=== PATIENT | male | born 1945 | race Caucasian/White ===

== ENCOUNTER 2017-08-01 17:17 | Emergency (ER) | payer MEDICARE, MEDICAID ==
[2017-08-01 17:18] VITALS: BMI 26.4
--- NOTE | 2017-08-01 17:33 | ED PDOC ---
Arrival/HPI - General Time Seen by Provider: 08/01/17 17:21 Historian: Patient, Family - History of Present Illness Narrative History of Present Illness (Text): 08/01/17 17:33 This 72 yo male with pmh DM, HTN, CAD, presents to this ED by BLS for evaluation of syncope. Patient stated he was doing well. While walking to bathroom he loss recollection of how he fainted. stated she heard patient falling on the floor. She found patient on the floor at the bathroom door. Denies other complains. stated patient take his insulin in the morning with a "little cereal", however patient did not eat his lunch. Time/Duration: Prior to Arrival Context: Home Past Medical History - Provider Review Nursing Documentation Reviewed: Yes - Cardiac Hx Pacemaker: No - Pulmonary Hx Respiratory Disorders: No - Neurological Hx Paralysis: No - HEENT Hx HEENT Disorder: Yes Hx Cataracts: Yes (Right Eye) - Renal Hx Renal Disorder: No - Endocrine/Metabolic Hx Endocrine Disorders: Yes Hx Diabetes Mellitus Type 2: Yes - Hematological/Oncological Hx Blood Transfusions: No - Integumentary Hx Dermatological Disorder: No - Musculoskeletal/Rheumatological Hx Musculoskeletal Disorders: No - Gastrointestinal Hx Gastrointestinal Disorders: No - Genitourinary/Gynecological Hx Genitourinary Disorders: Yes Hx Prostate Problems: Yes - Psychiatric Hx Emotional Abuse: No Hx Physical Abuse: No Hx Substance Use: No - Surgical History Hx Cardiac Catheterization: Yes Hx Cholecystectomy: Yes Hx Coronary Stent: Yes (5 placed about 3 years ago) - Anesthesia Hx Anesthesia Reactions: No Hx Malignant Hyperthermia: No - Suicidal Assessment Feels Threatened In Home Enviroment: No Family/Social History - Physician Review Nursing Documentation Reviewed: Yes Family/Social History: Other (noncontributory) Smoking Status: Former Smoker Hx Alcohol Use: No Hx Substance Use: No Allergies/Home Meds Allergies/Adverse Reactions: Allergies No Known Allergies Allergy (Verified 08/28/15 18:25) Home Medications: Home Meds Medication Instructions Recorded Confirmed Insulin Glargine,Hum.rec.anlog 30 unit SC QAM 08/29/15 08/01/17 [Lantus] Insulin Human Regular [Novolin R] 20 unit SC BID 08/29/15 08/01/17 MetFORMIN [glucoPHAGE] 1,000 mg PO BID 12/23/15 11/25/17 Simvastatin 10 mg PO DAILY 08/29/15 08/01/17 Tamsulosin [Flomax] 0.4 mg PO DAILY 08/29/15 08/01/17 Metoprolol Tartrate [Lopressor] 12.5 mg PO BID 10/09/15 08/01/17 Review of Systems - Review of Systems Constitutional: Normal. absent: Fatigue, Weight Change, Fevers Eyes: Normal ENT: Normal. absent: Sore Throat, Rhinorrhea Respiratory: Normal. absent: SOB, Cough Cardiovascular: Syncope. absent: Chest Pain, Palpitations, Edema, Calf Pain, LIGHT, Orthopnea Gastrointestinal: Normal. absent: Abdominal Pain, Nausea, Vomiting Genitourinary Male: Normal. absent: Dysuria Musculoskeletal: Normal Skin: Normal. absent: Rash Neurological: Normal. absent: Headache, Dizziness Endocrine: Normal. absent: Diaphoresis Hemo/Lymphatic: Normal Psychiatric: Normal Physical Exam Vital Signs Temp Pulse Resp BP Pulse Ox 08/01/17 21:56 67 20 154/73 H 97 08/01/17 19:07 68 16 147/75 99 08/01/17 17:31 98.4 F 68 18 130/64 96 Temperature: Afebrile Blood Pressure: Normal Pulse: Regular Respiratory Rate: Normal Appearance: Positive for: Well-Appearing, Non-Toxic, Comfortable Pain Distress: None Mental Status: Positive for: Alert and Oriented X 3 Finger Stick Blood Glucose: 63 - Systems Exam Head: Present: Atraumatic, Normocephalic, Other (no raccoon sign. No taylor sign) Pupils: Present: PERRL, Other (no hyphema) Extroacular Muscles: Present: EOMI. No: Entrapment Conjunctiva: Present: Normal Ears: Present: Normal, NORMAL TM, Other (no hemotympanum) Mouth: Present: Moist Mucous Membranes Neck: Present: Normal Range of Motion, Lymphadenopathy, Trachea Midline. No: Meningeal Signs, MIDLINE TENDERNESS, Paraspinal Tenderness Respiratory/Chest: Present: Clear to Auscultation, Good Air Exchange. No: Respiratory Distress, Accessory Muscle Use, Wheezes, Rales, Retracting, Rhonchi Cardiovascular: Present: Regular Rate and Rhythm, Normal S1, S2. No: Murmurs Abdomen: Present: Normal Bowel Sounds. No: Tenderness, Distention, Peritoneal Signs Back: Present: Normal Inspection. No: CVA Tenderness Upper Extremity: Present: Normal Inspection, Normal ROM. No: Cyanosis, Edema Lower Extremity: Present: Normal Inspection, Normal ROM. No: Edema Neurological: Present: GCS=15, CN II-XII Intact, Speech Normal, Motor Func Grossly Intact, Normal Sensory Function, Normal Cerebellar Funct Skin: Present: Warm, Dry, Normal Color. No: Rashes Psychiatric: Present: Alert, Oriented x 3, Normal Insight, Normal Concentration Medical Decision Making ED Course and Treatment: 08/01/17 19:[address] Castillo regarding patient history of syncope. We reviewed medical history, labs, ua, cx, ct head. Dr. Castillo asked me to add D dimer, and to check radial, femoral and pedis pulses, and also to examined abdomen for any pulsating mass. All pulses were equal, symmetric, +2. No pulsating abdominal mass. Patient admits having an abdominal ultrasound in another hospital when he was Dx. GB stone, and he is s/p cholecystectomy. He asked me to Call Dr. Osullivan. I spoke with Dr. Osullivan, and he is aware of plan. He agrees with plan for Observation Remote Tele. 08/01/17 21:00 Patient does not want to be admitted in the hospital. He wants to sign himself AMA. Family members at bedside, and they agree with patient to sign AMA. Patient stated he feels well. 08/01/17 21:10 Leaving Against Medical Advice (AMA): This patient is choosing to leave against medical advice. The EP has personally explained to the pt and his family that choosing to do so may result in permanent bodily harm or . The EP discussed at great length that without further evaluation and monitoring there may be unforeseen circumstances and/or deterioration causing permanent bodily harm or as a result of their choice. The pt verbalized these risks back to the physician in laymans terms. The pt is alert, oriented, and shows the mental capacity to make clear decisions regarding the pts health care at this time. The pt continues to wish to leave against medical advice. In light of the pts decision to leave AMA, follow-up has been recommended and the pt is aware of the importance of following up as instructed. The pt has been advised that they should return to the ED immediately if they change their mind at any time, or if condition begins to change or worsen in any way. Patient stated he will see his PMD tomorrow morning. 08/01/17 22:[address] Castillo about patient requesting to sign AMA Re-evaluation Time: 21:30 Reassessment Condition: Re-examined - Lab Interpretations Lab Results: 08/01/17 17:45 08/01/17 17:45 Lab Results 08/01/17 19:00: D-Dimer, Quantitative 364 H 08/01/17 17:50: Urine Color Yellow, Urine Appearance Clear, Urine pH 6.0, Ur Specific Terry 1.015, Urine Protein Negative, Urine Glucose (UA) Negative, Urine Ketones Negative, Urine Blood Negative, Urine Nitrate Negative, Urine Bilirubin Negative, Urine Urobilinogen 0.2, Ur Leukocyte Esterase Negative 08/01/17 17:45: Sodium 139, Potassium 3.9, Chloride 105, Carbon Dioxide 24, Anion Gap 14, BUN 23 H, Creatinine 1.3, Est GFR ( Amer) > 60, Est GFR ( Non-Af Amer) 54, Random Glucose 46 L* D, Calcium 9.7, Magnesium 1.8, Total Bilirubin 0.5, AST 41, ALT 33, Alkaline Phosphatase 144 H, Lactate Dehydrogenase 378, Total Creatine Kinase 82, Troponin I < 0.01, NT-Pro-B Natriuret Pep 72.6, Total Protein 7.2, Albumin 3.9, Globulin 3.3, Albumin/ Globulin Ratio 1.2 08/01/17 17:45: PT 10.4, INR 0.96, APTT 34.1 08/01/17 17:45: WBC 9.7 D, RBC 5.41, Hgb 13.9 L, Hct 42.5, MCV 78.6 L, MCH 25.7 , MCHC 32.7, RDW 15.0 H, Plt Count 200, MPV 11.1 H, Gran % 35.7 L, Lymph % (Auto ) 40.7 H, [place] % (Auto) 6.3 H, Eos % (Auto) 16.4 H, Baso % (Auto) 0.9, Gran # 3.46, Lymph # 3.9 H, [place] # 0.6, Eos # 1.6 H, Baso # 0.09 I have reviewed the lab results: Yes Interpretation: Abnormal lab values - RAD Interpretation Narrative RAD Interpretations (Text): 08/01/17 19:02 [facility] Division of Radiology [address] [place] [address] Tel. no. Patient Name: MARILUZ THOMAS Pt. Address: [address] [place] [address] Rec #: [id number] [place] [address]: Ronna Magallanes PA-C Pt Order Location: ED : 1945 Male Age: 72 Order #: [id number] Reason for exam: syncope CT Scan HEAD W/O CONTRAST Exam Date: 08/01/17 This imaging exam was performed at [facility] EXAM: CT Head Without Intravenous Contrast CLINICAL HISTORY: 72 years old, male; Signs and symptoms; Syncope and collapse TECHNIQUE: Axial computed tomography images of the head/brain without intravenous contrast. All CT scans at this facility use one or more dose reduction techniques, viz.: automated exposure control; ma/kV adjustment per patient size (including targeted exams where dose is matched to indication; i.e. head); or iterative reconstruction technique. COMPARISON: CT - HEAD W/O CONTRAST 2015-08-28 19:51 FINDINGS: Brain: Mejf-fb-pzkrfmay atrophy. No intracranial hemorrhage. No mass. Several scattered foci of decreased attenuation within periventricular/subcortical white matter. Probable chronic lacunar infarcts within basal ganglia. No definite edema. Ventricles: No hydrocephalus. Bones/joints: No acute fracture. Soft tissues: Unremarkable. Vasculature: Minimal atherosclerotic disease of intracranial arteries. Sinuses: Scattered moderate mucosal thickening of ethmoid sinuses. Mastoid air cells: No mastoid effusion. Orbits: Unremarkable as visualized. IMPRESSION: 1. Nonspecific white matter changes. Acute infarction may be CT occult within first 24 hours. If a focal deficit persists, consider followup CT or MRI for further evaluation. 2. Incidental/non-acute findings are described above. Dictated By: Julio Hernandez MD Dictated Date/Time: 08/01/171857 Signed By: Julio Hernandez MD Date Signed: 1857 Transcribed By: VALERIO Transcribe Date/Time : 08/01/17 08/01/17 22:24 CT Angiography of Chest IMPRESSION: 1. No definite CT evidence of pulmonary embolism. 2. Pulmonary nodules. For low-risk patients, no follow-up is necessary. For high-risk patients (smoking history or other known risk factors) an optional CT at 12 months could be performed. 3. Incidental/non-acute findings are described above. Dictated By: Julio Hernandez MD Dictated Date/Time: 08/01/172117 Radiology Orders: 08/01/17 17:39 CHEST PORTABLE [RAD] Stat 08/01/17 17:40 HEAD W/O CONTRAST [CT] Stat 08/01/17 20:17 ANGIO CHEST PE PROTOCOL [CT] Stat - EKG Interpretation Interpreted by ED Physician: Yes (NSR @ [address] changes) Type: 12 lead EKG Comparison: No previous EKG avail. Disposition/Present on Arrival - Present on Arrival Any Indicators Present on Arrival: No History of DVT/PE: No History of Uncontrolled Diabetes: No Urinary Catheter: No History Surgical Site Infection Following: None - Disposition Have Diagnosis and Disposition been Completed?: Yes Diagnosis: Syncope, Hypoglycemia Disposition: AGAINST MEDICAL ADVICE Disposition Time: 21:30 Condition: UNKNOWN Discharge Instructions (ExitCare): Syncope (ED) Additional Instructions: Thank you for letting us take care of you today. The emergency medical care you received today was directed at your acute symptoms. If you were prescribed any medication, please fill it and take as directed. It may take several days for your symptoms to resolve. Return to the Emergency Department if your symptoms worsen, do not improve, or if you have any other problems. Please contact your doctor or call one of the physicians/clinics you have been referred to that are listed on the Patient Visit Information form that is included in your discharge packet. Bring any paperwork you were given at discharge with you along with any medications you are taking to your follow up visit. Our treatment cannot replace ongoing medical care by a primary care provider (PCP) outside of the emergency department. Thank you for allowing the [facility] team to be part of your care today. YOU SIGNED OUT AGAINST MEDICAL ADVICE. PLEASE FOLLOW UP WITH YOUR PRIMARY DOCTOR SOON POSSIBLE FOR PROMPT RE- EVALUATION AND FURTHER MANAGEMENT. Referrals: [facility], [Non-Staff] - Follow up with primary Forms: [facility] ([place])
[2017-08-01 17:41] VITALS: TEMP 98.4
[2017-08-01 18:03] LABS: BASO # 0.09 K/mm3 (0.0-2.0); BASO % 0.9 % (0.0-3.0); EOS # 1.6 (0.0-0.7); EOS % 16.4 % (1.5-5.0); GRAN # 3.46 (1.4-6.5); GRAN % 35.7 % (50.0-68.0); HEMATOCRIT 42.5 % (42.0-52.0); LYMPH # 3.9 (1.2-3.4); LYMPH % 40.7 % (22.0-35.0); MEAN CELL VOLUME 78.6 fl (80.0-105.0); MEAN CORPUSCULAR HEMOGLOBIN 25.7 pg (25.0-35.0); MEAN CORPUSCULAR HGB CONC 32.7 g/dl (31.0-37.0); MEAN PLATELET VOLUME 11.1 fl (7.0-11.0); MONO # 0.6 (0.1-0.6); MONO % 6.3 % (1.0-6.0); WHITE BLOOD COUNT 9.7 10^3/ul (4.5-11.0)
[2017-08-01 18:07] LABS: INR 0.96 (0.93-1.08); PARTIAL THROMBOPLASTIN TIME 34.1 Seconds (25.1-36.5)
[2017-08-01 18:11] LABS: URINE BILIRUBIN NEGATIVE (NEGATIVE); URINE BLOOD NEGATIVE (NEGATIVE); URINE GLUCOSE (UA) NEGATIVE (NEGATIVE); URINE KETONE NEGATIVE (NEGATIVE); URINE LEUKOCYTE ESTERASE NEGATIVE Leu/uL (NEGATIVE); URINE PROTEIN NEGATIVE mg/dL (<30 mg/dL); URINE UROBILINOGEN 0.2 E.U./dL (<1 E.U./dL)
[2017-08-01 18:14] LABS: URINE APPEARANCE CLEAR (CLEAR); URINE COLOR YELLOW (YELLOW)
[2017-08-01 18:21] LABS: TROPONIN I < 0.01 ng/mL
[2017-08-01 18:22] LABS: ALB/GLOB RATIO 1.2 (1.1-1.8); ALKALINE PHOSPHATASE 144 U/L (38-126); ALT/SGPT 33 U/L (7-56); AST/SGOT 41 U/L (17-59); BILIRUBIN,TOTAL 0.5 mg/dL (0.2-1.3); BLOOD UREA NITROGEN 23 mg/dL (7-21); CALCIUM 9.7 mg/dL (8.4-10.5); CARBON DIOXIDE 24 mmol/L (21-33); CHLORIDE 105 mmol/L (98-107); GFR AFRICAN-AMERICAN > 60; MAGNESIUM 1.8 mg/dL (1.7-2.2); POTASSIUM 3.9 mmol/L (3.6-5.0); SODIUM 139 mmol/L (132-148); TOTAL PROTEIN 7.2 g/dL (5.8-8.3)
[2017-08-01 18:26] LABS: GLUCOSE,RANDOM 46 mg/dL (70-110)
--- NOTE | 2017-08-01 18:58 | CT ---
EXAM: CT Head Without Intravenous Contrast CLINICAL HISTORY: 72 years old, male; Signs and symptoms; Syncope and collapse TECHNIQUE: Axial computed tomography images of the head/brain without intravenous contrast. All CT scans at this facility use one or more dose reduction techniques, viz.: automated exposure control; ma/kV adjustment per patient size (including targeted exams where dose is matched to indication; i.e. head); or iterative reconstruction technique. COMPARISON: CT - HEAD W/O CONTRAST 2015-08-28 19:51 FINDINGS: Brain: Zwsm-lj-iwtbjmbn atrophy. No intracranial hemorrhage. No mass. Several scattered foci of decreased attenuation within periventricular/subcortical white matter. Probable chronic lacunar infarcts within basal ganglia. No definite edema. Ventricles: No hydrocephalus. Bones/joints: No acute fracture. Soft tissues: Unremarkable. Vasculature: Minimal atherosclerotic disease of intracranial arteries. Sinuses: Scattered moderate mucosal thickening of ethmoid sinuses. Mastoid air cells: No mastoid effusion. Orbits: Unremarkable as visualized. IMPRESSION: 1. Nonspecific white matter changes. Acute infarction may be CT occult within first 24 hours. If a focal deficit persists, consider followup CT or MRI for further evaluation. 2. Incidental/non-acute findings are described above.
[2017-08-01] MEDS ORDERED: Iohexol 350 MG/100 ML VIAL ONE (20:36)
--- NOTE | 2017-08-01 21:19 | CT ---
EXAM: CT Angiography Chest With Intravenous Contrast CLINICAL HISTORY: 72 years old, male; Abnormal findings; Abnormal diagnostic tests; Elevated d-dimer; Additional info: Elevated ddimer, syncope TECHNIQUE: Axial computed tomographic angiography images of the chest with intravenous contrast using pulmonary embolism protocol. All CT scans at this facility use one or more dose reduction techniques, viz.: automated exposure control; ma/kV adjustment per patient size (including targeted exams where dose is matched to indication; i.e. head); or iterative reconstruction technique. MIP reconstructed images were created and reviewed. Coronal and sagittal reformatted images were created and reviewed. CONTRAST: 92 mL of OMNI 350 administered intravenously. COMPARISON: No relevant prior studies available. FINDINGS: Limitations: Motion artifact - mild to moderate. Pulmonary arteries: No definite pulmonary embolism. Aorta: Moderate atherosclerotic disease. No aneurysm. Lungs: No consolidation. Few pulmonary nodules, up to 0.4 cm. Pleural space: No significant effusion. No pneumothorax. Heart: No cardiomegaly. No significant pericardial effusion. Mediastinum: Probable small hiatal hernia. Bones/joints: Degenerative changes of spine. No acute fracture. Soft tissues: Unremarkable. Lymph nodes: No pathologically enlarged lymph nodes. Liver: Few calcifications. Gallbladder and bile ducts: Cholecystectomy. IMPRESSION: 1. No definite CT evidence of pulmonary embolism. 2. Pulmonary nodules. For low-risk patients, no follow-up is necessary. For high-risk patients (smoking history or other known risk factors) an optional CT at 12 months could be performed. 3. Incidental/non-acute findings are described above.
[2017-08-01 21:58] VITALS: BP 154/73; PULSE 67; RESP 20; O2SAT 97
--- NOTE | 2017-08-02 09:03 | CARD ---
APPROVED REPORT EKG Measurement Heart [id number] <Conclusion> Normal sinus rhythm Right bundle branch block, new
--- NOTE | 2017-08-02 10:09 | RAD ---
HISTORY: SYNCOPE COMPARISON: 07/23/2017 FINDINGS: LUNGS: No active pulmonary disease. PLEURA: No significant pleural effusion identified, no pneumothorax apparent. CARDIOVASCULAR: Normal. OSSEOUS STRUCTURES: No significant abnormalities. VISUALIZED UPPER ABDOMEN: Normal. OTHER FINDINGS: None. IMPRESSION: No active disease.
== END 2017-08-01 21:56 | disposition left against medical advice (07) ==
LOC: ED 17:17
DX: R55 Syncope and collapse (principal); E11.649 Type 2 diabetes mellitus with hypoglycemia without coma; I10 Essential (primary) hypertension; I25.10 Atherosclerotic heart disease of native coronary artery without angina pectoris; Z79.4 Long term (current) use of insulin; Z87.891 Personal history of nicotine dependence
CPT/HCPCS: 70450; 71010; 71275; 80053; 81003; 82550; 83615; 83735; 83880; 84484; 85025; 85378; 85610; 85730; 93005; 99285; Q9967

== ENCOUNTER 2017-10-14 06:36 | Day surgery (SDC) | payer MEDICARE, MEDICAID ==
[2017-10-06 12:10] VITALS: BMI 25.6
[2017-10-14] MEDS ORDERED: Phenylephrine 10 mg/ml Inj ONE (06:56)
[2017-10-14] MEDS ORDERED: Lidocaine 2% Inj (20ml) ONE (06:56)
[2017-10-14] MEDS ORDERED: Midazolam 2 MG/2 ML VIAL ONE ×2 (06:57→08:04)
[2017-10-14] MEDS ORDERED: HEPARIN SODIUM/NS 2,000 ML IV ONE (06:57)
[2017-10-14] MEDS ORDERED: Nitroglycerin 50mg in D5W 50 MG/250 ML BOTTLE IV ONE (06:57)
[2017-10-14] MEDS ORDERED: Iohexol 350mgl/ml 50 ML ONE (06:57)
[2017-10-14] MEDS ORDERED: Iodixanol 320 MG/ML 200 ML BOTTLE IV ONE (06:57)
[2017-10-14] MEDS ORDERED: Iodixanol 320 MG/ML 100 ML BOTTLE IV ONE (06:57)
[2017-10-14] MEDS ORDERED: Sodium Chloride 0.9% 1,000 ML IV SCH (08:30)
[2017-10-14 08:52] VITALS: TEMP 97.9
[2017-10-14 10:40] VITALS: O2SAT 100
[2017-10-14 10:41] VITALS: BP 136/94; PULSE 67; RESP 20
--- NOTE | 2017-10-14 18:37 | CARDCATH ---
PROCEDURE DATE: 10/14/2017 PROCEDURES PERFORMED: 1. Selective left and right coronary angiography. 2. Left ventriculography. 3. Right femoral arteriography. 4. Angio-Seal deployment. HISTORY: This is a 72-year-old male with known coronary artery disease, status post prior multivessel stenting, who was referred for evaluation of recurrent chest pain. Cardiac catheterization was advised. INDICATIONS: As above. FINDINGS: The aortic pressure was 140/70, left ventricular pressure of 140/16. CORONARY ANATOMY: 1. The left main stem was normal. 2. Left anterior descending artery had mild calcification in the proximal mid segment. The previously placed stent in the mid LAD had evidence of moderate in-stent restenosis with 60% severity. The diagonal branches were fairly small with mild diffuse disease. 3. The left circumflex artery had a long 40% stenosis in the proximal segment followed by 50% lesion in the mid segment. This gave rise to several small obtuse marginal branches and one large distal obtuse marginal branch, which had minimal disease. 4. The right coronary artery was dominant and the previously placed stent in the mid portion was widely patent. A distal stent had evidence of 50% in-stent restenosis in the early segment of the stent. The distal branch showed evidence of mild diffuse disease. LEFT VENTRICULOGRAM: A left ventriculogram was performed in the BRITT projection with hand injection. This revealed normal wall motion with an ejection fraction of 60%. RIGHT FEMORAL ARTERIOGRAPHY: A right femoral arteriogram was performed in the BRITT projection. This revealed no evidence of significant disease and appropriate level of arterial puncture. The puncture site was then closed with deployment of an Angio-Seal device. CONCLUSION: 1. Swdv-qn-yvtnldvq diffuse coronary artery disease with [id number] in-stent restenosis in the RCA and LAD. 2. Normal LV systolic function. RECOMMENDATIONS: Given the above findings, intensified medical therapy and risk factor control would be advised. No coronary intervention that was performed. Miguelangel Kumar MD
== END 2017-10-14 12:22 | disposition home or self-care (01) ==
LOC: CATH 06:36
PROVIDERS: ATTEND Internal Medicine Cardiovascular Disease
DX: I25.10 Atherosclerotic heart disease of native coronary artery without angina pectoris (principal); T82.855A Stenosis of coronary artery stent, initial encounter; I10 Essential (primary) hypertension; E11.9 Type 2 diabetes mellitus without complications; Z79.4 Long term (current) use of insulin; Y83.8 Other surgical procedures as the cause of abnormal reaction of the patient, or of later complication, without mention of misadventure at the time of the procedure
CPT/HCPCS: 36415; 86850; 86900; 93458; 99152; 99153; C1760; C1769; C1887; C2629; J1644; J2250; J3010; J7030; J7040; Q9967

== ENCOUNTER 2017-11-09 10:14 | Inpatient (IN) | payer MEDICARE, MEDICAID ==
--- NOTE | 2017-11-09 10:29 | ED PDOC ---
Arrival/HPI - General Chief Complaint: Shortness Of Breath Time Seen by Provider: 11/09/17 10:20 Historian: Patient - History of Present Illness Narrative History of Present Illness (Text): 11/09/17 10:29 72 year old male, whose past medical history includes CAD s/p stent, diabetes, hypertension, and cholecystectomy presents to the emergency department complaining of shortness of breath that began last night. Patient quiet smoking for 10 years, but used to smoke 3 packs a day for around 50 years. He also reports coughing and a lot of phlegm, but denies any fever, chills, chest pain, nausea, vomiting, diarrhea, urinary symptoms, back pain, neck pain, headache, dizziness, or any other complaints. PMD: Dr. Charly Zuniga Time/Duration: Other (last night) Symptom Onset: Gradual Symptom Course: Unchanged Activities at Onset: Light Context: Home Past Medical History - Provider Review Nursing Documentation Reviewed: Yes - Infectious Disease Hx of Infectious Diseases: None - Cardiac Hx Pacemaker: No - Pulmonary Hx Respiratory Disorders: No - Neurological Hx Paralysis: No - HEENT Hx HEENT Disorder: Yes Hx Cataracts: Yes (Right Eye) - Renal Hx Renal Disorder: No - Endocrine/Metabolic Hx Endocrine Disorders: Yes Hx Diabetes Mellitus Type 2: Yes - Hematological/Oncological Hx Blood Transfusions: No - Integumentary Hx Dermatological Disorder: No - Musculoskeletal/Rheumatological Hx Musculoskeletal Disorders: No - Gastrointestinal Hx Gastrointestinal Disorders: No - Genitourinary/Gynecological Hx Genitourinary Disorders: Yes Hx Prostate Problems: Yes - Psychiatric Hx Emotional Abuse: No Hx Physical Abuse: No Hx Substance Use: No - Surgical History Hx Cardiac Catheterization: Yes Hx Cholecystectomy: Yes Hx Coronary Stent: Yes (5 placed about 3 years ago) - Anesthesia Hx Anesthesia Reactions: No - Suicidal Assessment Feels Threatened In Home Enviroment: No Family/Social History - Physician Review Nursing Documentation Reviewed: Yes Family/Social History: No Known Family HX Smoking Status: Former Smoker Hx Alcohol Use: No Hx Substance Use: No Allergies/Home Meds Allergies/Adverse Reactions: Allergies No Known Allergies Allergy (Verified 08/28/15 18:25) Home Medications: Home Meds Medication Instructions Recorded Confirmed Insulin Glargine,Hum.rec.anlog 30 unit SC QAM 08/29/15 11/09/17 [Lantus] MetFORMIN [glucoPHAGE] 1,000 mg PO BID 08/29/15 11/09/17 Simvastatin 10 mg PO DAILY 08/29/15 11/09/17 Tamsulosin [Flomax] 0.4 mg PO DAILY 08/29/15 11/09/17 Metoprolol Tartrate [Lopressor] 25 mg PO DAILY 10/09/15 11/09/17 Insulin Glargine, Recombina 15 units SC QPM 10/06/17 11/09/17 [Lantus] Losartan [Cozaar] 25 mg PO QPM 10/09/17 11/09/17 Review of Systems - Review of Systems Constitutional: absent: Fevers, Other (Chills) Respiratory: SOB, Cough, Other (phlegm) Cardiovascular: absent: Chest Pain Gastrointestinal: absent: Diarrhea, Nausea, Vomiting Genitourinary Male: absent: Dysuria, Frequency, Hematuria Musculoskeletal: absent: Back Pain, Neck Pain Neurological: absent: Headache, Dizziness Physical Exam Vital Signs Reviewed: Yes Vital Signs Temp Pulse Resp BP Pulse Ox 11/09/17 15:16 98.2 F 115 H 20 123/63 98 11/09/17 14:40 114 H 18 133/64 98 11/09/17 13:00 109 H 20 135/69 98 11/09/17 11:53 118 H 22 130/77 996 H 11/09/17 10:30 20 11/09/17 10:29 97.4 F L 112 H 16 108/75 100 Temperature: Afebrile Blood Pressure: Normal Pulse: Tachycardic Respiratory Rate: Normal Appearance: Positive for: Well-Appearing, Non-Toxic, Comfortable Pain Distress: None Mental Status: Positive for: Alert and Oriented X 3 - Systems Exam Head: Present: Atraumatic, Normocephalic Pupils: Present: PERRL Extroacular Muscles: Present: EOMI Conjunctiva: Present: Normal Mouth: Present: Moist Mucous Membranes Neck: Present: Normal Range of Motion Respiratory/Chest: Present: Wheezes (Bilateral expiratory wheeze) Cardiovascular: Present: Regular Rate and Rhythm, Normal S1, S2. No: Murmurs Abdomen: Present: Normal Bowel Sounds. No: Tenderness, Distention, Peritoneal Signs Back: Present: Normal Inspection Upper Extremity: Present: Normal Inspection. No: Cyanosis, Edema Lower Extremity: Present: Normal Inspection. No: Edema Neurological: Present: GCS=15, CN II-XII Intact, Speech Normal Skin: Present: Warm, Dry, Normal Color. No: Rashes Psychiatric: Present: Alert, Oriented x 3, Normal Insight, Normal Concentration Medical Decision Making ED Course and Treatment: 11/09/17 10:29 Impression: 72 year old male presents complaining of shortness of breath associated with cough and phlegm that began last night. Plan: -- EKG -- Chest X-ray -- Duoneb, Magnesium Sulfate IV Fluids, Solu-Medrol -- Blood Culture -- Influenza A B -- Reassess and disposition Prior Visits: Notes and results from previous visits were reviewed. Patient was last seen in the emergency department on 08/01/17 presents complaining of syncope episode. Patient left against medical advice. Progress Notes: EKG shows Sinus Tachycardia at 110 BPM with normal axis, RBBB. Interpreted by me. PROCEDURE: Chest X-ray Dictator : Treasure Greer MD Report Date : 11/09/2017 11:01:18 IMPRESSION: No active pulmonary disease. 11/09/17 12:[address] Castillo who is aware and agrees with the plan. Accepts patient into his service. - Lab Interpretations Lab Results: 11/09/17 11:00 11/09/17 11:00 Lab Results 11/09/17 11:00: Influenza Typ A,B (EIA) Negative for flu a/b 11/09/17 11:00: Sodium 142, Potassium 4.3, Chloride 103, Carbon Dioxide 24, Anion Gap 19, BUN 25 H, Creatinine 1.3, Est GFR ( Amer) > 60, Est GFR ( Non-Af Amer) 54, Random Glucose 196 H, Calcium 10.3, Magnesium 1.2 L, Total Bilirubin 0.6, AST 26, ALT 37, Alkaline Phosphatase 211 H D, Lactate Dehydrogenase 320 L, Total Creatine Kinase 77, Troponin I < 0.01, NT-Pro-B Natriuret Pep 93.3, Total Protein 7.7, Albumin 4.1, Globulin 3.7, Albumin/ Globulin Ratio 1.1 11/09/17 11:00: WBC 10.0, RBC 5.40, Hgb 14.1, Hct 43.1, MCV 79.8 L, MCH 26.1, MCHC 32.7, RDW 14.4, Plt Count 168, MPV 11.5 H, Gran % 36.4 L, Lymph % (Auto) 45.2 H, Eagle % (Auto) 8.1 H, Eos % (Auto) 9.9 H, Baso % (Auto) 0.4, Gran # 3.62 , Lymph # (Auto) 4.5 H, Eagle # (Auto) 0.8 H, Eos # (Auto) 1.0 H, Baso # (Auto) 0.04 I have reviewed the lab results: Yes - RAD Interpretation Radiology Orders: 11/09/17 10:29 CHEST PORTABLE [RAD] Stat - EKG Interpretation Interpreted by ED Physician: Yes Type: 12 lead EKG - Medication Orders Current Medication Orders: Acetylcysteine (Acetylcysteine 20%) 4 ml IH Q6H [facility] Atorvastatin Calcium (Lipitor) 10 mg PO DIN [facility] Last Admin: 11/09/17 16:51 Dose: 10 mg Diltiazem HCl (Cardizem) 30 mg PO Q6H [facility] Last Admin: 11/09/17 15:16 Dose: 30 mg MAR Pulse and Blood Pressure Document 11/09/17 15:16 SZA (Rec: 11/09/17 15:16 [facility] [id number]) Pulse Pulse Rate (60-90) 115 Blood Pressure Blood Pressure (100/60-150/90) 123/63 Enoxaparin Sodium (Lovenox) 40 mg SC DAILY [facility] PRN Reason: Protocol Sodium Chloride (Sodium Chloride 0.9%) 1,000 mls @ 100 mls/hr IV .Q10H JESSICA Stop: 11/10/17 11:00 Last Admin: 11/09/17 15:00 Dose: 100 mls/hr eMAR Start Stop Document 11/09/17 15:00 SZA (Rec: 11/09/17 15:16 [facility] [id number]) Intravenous Solution Start Date 11/09/17 Start Time 15:00 Ceftriaxone Sodium (Rocephin 1 Gram Ivpb) 1 gm in 100 mls @ 100 mls/hr IVPB DAILY [facility] PRN Reason: Protocol Last Admin: 11/09/17 15:40 Dose: 100 mls/hr eMAR Start Stop Document 11/09/17 15:40 SZA (Rec: 11/09/17 15:40 [facility] [id number]) Intravenous Solution Start Date 11/09/17 Start Time 15:40 Azithromycin (Zithromax 500mg In Ns) 500 mg in 250 mls @ 167 mls/hr IVPB DAILY JESSICA PRN Reason: Protocol Last Admin: 11/09/17 16:35 Dose: 167 mls/hr eMAR Start Stop Document 11/09/17 16:35 MCV (Rec: 11/09/17 16:35 [id number]) Intravenous Solution Start Date 11/09/17 Start Time 16:35 Insulin Detemir (Levemir) 30 unit SC QAM JESSICA Insulin Detemir (Levemir) 15 unit SC QPM JESSICA Last Admin: 11/09/17 17:14 Dose: 15 unit MAR Blood Glucose Document 11/09/17 17:14 MCV (Rec: 11/09/17 17:15 [id number]) Blood Glucose Finger Stick Blood Glucose (70-120) 461 Subcutaneous Administrations Document 11/09/17 17:14 MCV (Rec: 11/09/17 17:15 [id number]) Injection Site MAR Injection Site Left Abdomen Charges for Administration # of Subcutaneous Administrations 1 Insulin Human Regular (Humulin R Med) 0 units SC ACHS JESSICA PRN Reason: Protocol Last Admin: 11/09/17 16:50 Dose: 1 units MAR Blood Glucose Document 11/09/17 16:50 MCV (Rec: 11/09/17 16:51 [id number]) Blood Glucose Finger Stick Blood Glucose (70-120) 461 Subcutaneous Administrations Document 11/09/17 16:50 MCV (Rec: 11/09/17 16:51 [id number]) Injection Site MAR Injection Site Left Abdomen Charges for Administration # of Subcutaneous Administrations 1 Levalbuterol HCl (Xopenex) 0.63 mg IH [id number] [facility] Losartan Potassium (Cozaar) 25 mg PO DAILY JESSICA Methylprednisolone (Solu-Medrol) 40 mg IVP Q12 JESSICA Pantoprazole Sodium (Protonix Ec Tab) 40 mg PO DAILY JESSICA Promethazine HCl/Codeine (Phenergan/Codeine Oral Syrup) 5 ml PO Q4H PRN PRN Reason: Cough Tamsulosin HCl (Flomax) 0.4 mg PO DAILY JESSICA Discontinued Medications Albuterol/Ipratropium (Duoneb 3 Mg/0.5 Mg (3 Ml) Ud) 3 ml IH Q15M JESSICA Stop: 11/09/17 11:01 Last Admin: 11/09/17 11:01 Dose: 3 ml Magnesium Sulfate 2 gm/ Sodium (Chloride) 104 mls @ 102 mls/hr IVPB ONCE ONE Stop: 11/09/17 11:31 Last Admin: 11/09/17 11:02 Dose: 102 mls/hr eMAR Start Stop Document 11/09/17 11:02 DARA (Rec: 11/09/17 11:02 [id number]) Intravenous Solution Start Date 11/09/17 Start Time 11:02 End Date 11/09/17 End time 12:02 Total Infusion Time 60 Methylprednisolone (Solu-Medrol) 125 mg IVP STAT STA Stop: 11/09/17 10:31 Last Admin: 11/09/17 11:02 Dose: 125 mg IVP Administration Document 11/09/17 11:02 DARA (Rec: 11/09/17 11:02 DARA [id number]) Charges for Administration # of IVP Administrations 1 - Scribe Statement The provider has reviewed the documentation as recorded by the Jameel Segundo Provider Scribe Attestation: All medical record entries made by the Marleneibcalli were at my direction and personally dictated by me. I have reviewed the chart and agree that the record accurately reflects my personal performance of the history, physical exam, medical decision making, and the department course for this patient. I have also personally directed, reviewed, and agree with the discharge instructions and disposition. Disposition/Present on Arrival - Present on Arrival Any Indicators Present on Arrival: No History of DVT/PE: No History of Uncontrolled Diabetes: No Urinary Catheter: No History of Decub. Ulcer: No History Surgical Site Infection Following: None - Disposition Have Diagnosis and Disposition been Completed?: Yes Diagnosis: COPD exacerbation Disposition: HOSPITALIZED Disposition Time: 11:30 Condition: STABLE
[2017-11-09] MEDS ORDERED: Magnesium Sulfate 2 GM in Sodium Chloride 0.9% 100 ML IVPB ONE (10:30)
[2017-11-09] MEDS: Albuterol-Ipratrop 3 mg / 0.5 (3 ml) UD IH SCH ×3 (10:30→11:01)
--- NOTE | 2017-11-09 11:03 | RAD ---
HISTORY: Shortness of breath COMPARISON: 08/01/2017. FINDINGS: LUNGS: The lungs are well inflated and clear. PLEURA: No significant pleural effusion identified, no pneumothorax apparent. CARDIOVASCULAR: Normal. OSSEOUS STRUCTURES: No significant abnormalities. VISUALIZED UPPER ABDOMEN: Normal. OTHER FINDINGS: None. IMPRESSION: No active pulmonary disease.
[2017-11-09 11:04] LABS: BASO # 0.04 K/mm3 (0.0-2.0); BASO % 0.4 % (0.0-3.0); EOS % 9.9 % (1.5-5.0); GRAN # 3.62 (1.4-6.5); GRAN % 36.4 % (50.0-68.0); HEMOGLOBIN 14.1 g/dL (14.0-18.0); LYMPH # 4.5 (1.2-3.4); LYMPH % 45.2 % (22.0-35.0); MEAN CELL VOLUME 79.8 fl (80.0-105.0); MEAN CORPUSCULAR HEMOGLOBIN 26.1 pg (25.0-35.0); MEAN CORPUSCULAR HGB CONC 32.7 g/dl (31.0-37.0); MEAN PLATELET VOLUME 11.5 fl (7.0-11.0); MONO # 0.8 (0.1-0.6); MONO % 8.1 % (1.0-6.0); RBC 5.4 10^6/uL (3.5-6.1); RED CELL DISTRIBUTION WIDTH 14.4 % (11.5-14.5)
[2017-11-09 11:13] LABS: ALB/GLOB RATIO 1.1 (1.1-1.8); ALBUMIN 4.1 g/dL (3.0-4.8); ALT/SGPT 37 U/L (7-56); AST/SGOT 26 U/L (17-59); BLOOD UREA NITROGEN 25 mg/dL (7-21); CALCIUM 10.3 mg/dL (8.4-10.5); GFR AFRICAN-AMERICAN > 60; GFR NON-AFRICAN AMERICAN 54; MAGNESIUM 1.2 mg/dL (1.7-2.2)
[2017-11-09 11:25] LABS: B-TYPE NATRIURETIC PEPTIDE 93.3 pg/mL (0-450); TROPONIN I < 0.01 ng/mL
--- NOTE | 2017-11-09 13:40 | CP.PCM.HP ---
History of Present Illness - History of Present Illness History of Present Illness: Medicine H&P for Dr. Castillo cc: Shortness of breath 72 M with HTN, DM, CAD, BPH presents to [facility] ED for complaint of shortness of breath. Patient states that his symptoms began yesterday evening while at home. He suddenly felt like he was unable to breath so he decided to use his inhaler. It provided minimal relief but it was good enough for him to be comfortable. Four to six hours later his symptoms returned. He tried his inhaler again. The patient stated that he was able to tolerate his symptoms until 6 am this morning when he decided to be seen in the ED. Patient denies any pain currently. Patient admits to associated productive cough (unsure of color). Patient states coughing and exertion exacerbates his symptoms while nothing alleviates them. Patient denies any recent illnesses or sick contacts. Patient sleeps with one pillow. Patient had an Echo in Fall 2016 that showed normal EF. He also had CT chest in the fall which showed pulmonary nodule. Patient states he is compliant with medical treatment. 12 point ROS negative unless otherwise stated. PMD: Dr. Zuniga PMH: HTN, DM, CAD, BPH, COPD Meds: As per EMR Allergy: NKDA PSH: cardiac cath, cholecystectomy FH: non-contributory Social: 100+ pack year history, denies EtOH/illicit drugs use, lives with Present on Admission - Present on Admission Any Indicators Present on Admission: No History of DVT/PE: No History of Uncontrolled Diabetes: No Urinary Catheter: No Decubitus Ulcer Present: No Review of Systems - Review of Systems All systems: reviewed and no additional remarkable complaints except (as per HPI ) Past Patient History - Infectious Disease Hx of Infectious Diseases: None - Past Social History Smoking Status: Former Smoker - CARDIAC Hx Pacemaker: No - PULMONARY Hx Respiratory Disorders: No - NEUROLOGICAL Hx Paralysis: No - HEENT Hx HEENT Problems: Yes Hx Cataracts: Yes (Right Eye) - RENAL Hx Chronic Kidney Disease: No - ENDOCRINE/METABOLIC Hx Endocrine Disorders: Yes Hx Diabetes Mellitus Type 2: Yes - HEMATOLOGICAL/ONCOLOGICAL Hx Blood Transfusions: No - INTEGUMENTARY Hx Dermatological Problems: No - MUSCULOSKELETAL/RHEUMATOLOGICAL Hx Musculoskeletal Disorders: No - GASTROINTESTINAL Hx Gastrointestinal Disorders: No - GENITOURINARY/GYNECOLOGICAL Hx Genitourinary Disorders: Yes Hx Prostate Problems: Yes - PSYCHIATRIC Hx Emotional Abuse: No Hx Physical Abuse: No Hx Substance Use: No - SURGICAL HISTORY Hx Cardiac Catheterization: Yes Hx Cholecystectomy: Yes Hx Coronary Stent: Yes (5 placed about 3 years ago) - ANESTHESIA Hx Anesthesia Reactions: No Meds Allergies/Adverse Reactions: Allergies Allergy/AdvReac Type Severity Reaction Status Date / Time No Known Allergies Allergy Verified 08/28/15 18:25 Physical Exam - Constitutional Appears: No Acute Distress - Head Exam Head Exam: ATRAUMATIC, NORMOCEPHALIC - Eye Exam Eye Exam: EOMI, Normal appearance Pupil Exam: PERRL - ENT Exam ENT Exam: Mucous Membranes Dry - Neck Exam Neck exam: Negative for: Tenderness - Respiratory Exam Respiratory Exam: Wheezes, NORMAL BREATHING PATTERN - Cardiovascular Exam Cardiovascular Exam: Tachycardia - GI/Abdominal Exam GI & Abdominal Exam: Normal Bowel Sounds, Soft. absent: Distended, Firm, Guarding, Hernia, Rebound, Rigid, Tenderness - Extremities Exam Extremities exam: Positive for: normal capillary refill, pedal pulses present. Negative for: calf tenderness, pedal edema - Back Exam Back exam: absent: CVA tenderness (L), CVA tenderness (R) - Neurological Exam Neurological exam: Alert, Oriented x3 - Psychiatric Exam Psychiatric exam: Normal Affect, Normal Mood - Skin Skin Exam: Dry, Intact, Normal Color, Warm Results - Vital Signs Recent Vital Signs: Last Vital Signs Temp 97.4 F L 11/09/17 10:29 Pulse 118 H 11/09/17 11:53 Resp 22 11/09/17 11:53 BP 130/77 11/09/17 11:53 Pulse Ox 996 H 11/09/17 11:53 - Labs Result Diagrams: 11/09/17 11:00 11/09/17 11:00 Assessment & Plan - Assessment and Plan (Free Text) Plan: 72 M with past medical history of CAD, DM, HTN presents for shortness of breath likely secondary to COPD exacerbation Shortness of breath Pulm consult, Dr. Hernandez, help appreciated CXR: no active disease CT chest with contrast - evaluate for pneumonia/pulm nodules Mucomyst 4 ml IH Q6H Xopenex 0.63 mg IH Q6H First troponin negative, f/u repeat f/u repeat ekg f/u influenza a/b Pancultures Solu-medrol 40 mg IVP Q12H Rocephin 1 gm IVPB daily Azithromycin 500 mg IVPB daily Cough Promethazine/Codeine 5 ml Q4H PRN HTN Cozaar 25 mg po daily Cardizem 30 mg Q6H DM ISS Insulin Detemir 30 units in AM and 15 units in PM Accuchecks ACHS HHD mod carb diet CAD Atorvastatin 10 mg PO DIN BPH Flomax 0.4 mg PO daily Prophylaxis Lovenox Protonix Discussed with Dr. Anna Mercedes PGY1
[2017-11-09] MEDS: Sodium Chloride 0.9% 1,000 ML IV SCH (15:00)
[2017-11-09] MEDS ORDERED: Acetylcysteine 20% Inhal Soln (4ml) IH SCH (15:00)
[2017-11-09] MEDS: cefTRIAXone 1 gm 1 GM/100 ML BAG IVPB SCH (15:40)
[2017-11-09] MEDS ORDERED: Promethazine/Cod 6.25mg-10mg/5ml Syr UD PO PRN (15:55)
[2017-11-09] MEDS: Azithromycin 500MG/NS 250ml 500 MG/250 ML BAG IVPB SCH (16:35)
[2017-11-09] MEDS: Insulin Reg-MEDIUM-Coverage SC SCH ×2 (16:50→21:55)
[2017-11-09 17:02] LABS: PH,URINE 5.5 (4.7-8.0); URINE BILIRUBIN NEGATIVE (NEGATIVE); URINE BLOOD NEGATIVE (NEGATIVE); URINE GLUCOSE (UA) >=1000 mg/dL (NEGATIVE); URINE LEUKOCYTE ESTERASE NEGATIVE Leu/uL (NEGATIVE); URINE NITRATE NEGATIVE (NEGATIVE); URINE PROTEIN TRACE mg/dL (<30 mg/dL); URINE UROBILINOGEN 0.2 E.U./dL (<1 E.U./dL)
[2017-11-09 17:09] VITALS: RESP 20
[2017-11-09] MEDS: Insulin Detemir 100 units/ml Vial (Levemir) SC SCH (17:14)
[2017-11-09 17:22] LABS: URINE APPEARANCE CLEAR (CLEAR); URINE COLOR LIGHT YELLOW (YELLOW)
[2017-11-09] MEDS ORDERED: Insulin Regular 1 UNITS/0.01 ML ML SC ONE ×2 (17:53→21:47)
[2017-11-09 17:56] LABS: URINE WBC 0 - 2 /hpf (0-6)
[2017-11-09 17:57] LABS: URINE BACTERIA SMALL (NEG); URINE EPITHELIAL CELLS 0 - 2 /hpf (0-5)
[2017-11-09] MEDS ORDERED: Iohexol 350 MG/100 ML VIAL ONE (18:23)
[2017-11-09 18:31] LABS: PROTHROMBIN TIME 12.4 SECONDS (9.4-12.5)
[2017-11-09 18:32] LABS: INR 1.09 (0.93-1.08); PARTIAL THROMBOPLASTIN TIME 29.6 Seconds (25.1-36.5)
[2017-11-09] MEDS ORDERED: Levalbuterol 0.63 MG/3 ML Inhal Soln UD IH SCH (20:00)
--- NOTE | 2017-11-09 20:04 | CT ---
EXAM: CT Chest With Intravenous Contrast EXAM DATE/TIME: 11/09/2017 2:49 PM CLINICAL HISTORY: 72 years old, male; Signs and symptoms; Shortness of breath; Additional info: Pulmonary nodules, copd, ? pneumonia TECHNIQUE: Axial computed tomography images of the chest with intravenous contrast. All CT scans at this facility use one or more dose reduction techniques, viz.: automated exposure control; ma/kV adjustment per patient size (including targeted exams where dose is matched to indication; i.e. head); or iterative reconstruction technique. Coronal and sagittal reformatted images were created and reviewed. CONTRAST: 100 mL of omni administered intravenously. COMPARISON: Prior CT chest of 2017-08-01 FINDINGS: LIMITATIONS: Mild streak/motion artifact. LUNGS: Incidental 5 mm noncalcified pulmonary nodule in the left lung, image 60/series 601, stable in appearance compared to the prior CT. In low-risk patients (minimal or absent history of smoking or other known risk factors), no follow-up is necessary. For high-risk patients (history of smoking or other known risk factors), an optional chest CT at 12 months could be performed. No evidence of significant focal consolidation/infiltrate in the lungs. No evidence of diffuse pulmonary vascular congestion. Patent large airways. PLEURAL SPACE: No pneumothorax or significant pleural effusions seen. HEART: Coronary artery calcification. Small amount of fluid in the pericardium. No evidence of a large circumferential pericardial effusion. BONES/JOINTS: No acute fractures or other acute bony abnormality noted. SOFT TISSUES: No acute abnormality of the visualized soft tissues is seen. 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 Atherosclerotic disease of the thoracic aorta. No evidence of thoracic aortic dissection or aneurysm. Exam is nondiagnostic for pulmonary emboli because of suboptimal contrast opacification of the pulmonary arteries. LYMPH NODES: No evidence of diffuse lymphadenopathy. GALLBLADDER AND BILE DUCTS: Biliary stent is in place. SPLEEN: Complex fluid collection abutting the spleen, which has a CT attenuation of 50-70 Hounsfield units. This indents the splenic parenchyma, and is suspicious for a subcapsular fluid collection. It does not contain gas. It could represent a hematoma. It measures up to 1.5 cm in depth. No splenic laceration is visualized. KIDNEYS AND URETERS: Stable appearance of atrophy and scarring of the right kidney. IMPRESSION: - Findings highly suspicious for a complex subcapsular fluid collection abutting the spleen, which could represent a hematoma. This is of uncertain etiology. - No evidence of significant acute process in the chest. 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 - Incidental 5 mm pumonary nodule. See recommendations above. - See above for remaining findings.
[2017-11-09] MEDS ORDERED: Iohexol 240 (50 ml) ONE (20:56)
[2017-11-09] MEDS: Levalbuterol 0.63 MG/3 ML Inhal Soln UD IH SCH (21:30)
[2017-11-09] MEDS: Acetylcysteine 20% Inhal Soln (4ml) IH SCH (21:30)
[2017-11-09] MEDS ORDERED: MethylPREDNISolone 40 mg Vial IVP SCH (22:00)
[2017-11-09 22:07] VITALS: BMI 25.1
[2017-11-09] MEDS ORDERED: Influenza Vaccine 60 mcg/0.5 mL SYR (4YR UP) IM ONE (22:07)
[2017-11-09] MEDS ORDERED: Pneumococcal 23-Valent Vaccine IM ONE (22:07)
--- NOTE | 2017-11-09 22:19 | CARD ---
APPROVED REPORT EKG Measurement Heart [id number] <Conclusion> Sinus tachycardia Right bundle branch block Abnormal ECG
--- NOTE | 2017-11-09 22:49 | CARD ---
APPROVED REPORT EKG Measurement Heart [id number] NV [id number] <Conclusion> Sinus tachycardia Rightward axis Incomplete right bundle branch block Borderline ECG
[2017-11-10] MEDS: Sodium Chloride 0.9% 1,000 ML IV SCH ×2 (02:18→10:35)
[2017-11-10] MEDS: Levalbuterol 0.63 MG/3 ML Inhal Soln UD IH SCH ×4 (03:20→19:56)
[2017-11-10] MEDS: Acetylcysteine 20% Inhal Soln (4ml) IH SCH ×6 (03:20→19:55)
--- NOTE | 2017-11-10 05:50 | HP ---
The patient was seen, examined. Patient's vital signs, medical history, diagnostic data, all reviewed. Please refer to the detailed history and physical examination done by the outside medical sales representative. The patient's chief complaint, history of present illness, past medical history, all medical diagnostic data reviewed. The patient was seen and examined. Please refer to the detailed history and physical examination by the outside medical sales representative for further past medical history. IMPRESSION AND PLAN: 1. Acute exacerbation of chronic obstructive pulmonary disease. 2. Sinus tachycardia. 3. Hypertension. 4. Insulin-requiring diabetes mellitus with hyperglycemia. 5. Hypomagnesemia. 6. Trace proteinuria, glycosuria, ketonuria. 7. Acute exacerbation of chronic obstructive pulmonary disease with shortness of breath and wheezing. 8. Incidental 5-mm noncalcified left lung nodule. 9. History of former smoker. 10. 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 11. Biliary stenting. 12. Complex splenic fluid collection indenting the splenic parenchyma suspicious for subcapsular splenic hematoma. 13. Right renal atrophy. 14. Highly suspicious splenic complex subcapsular fluid collection, possible splenic hematoma. 15. Right bundle-branch block. 16. Right axis deviation. 17. History of normocytic anemia. 18. History of lymphocytosis. 19. Uncontrolled diabetes mellitus with hyperglycemia and elevated hemoglobin A1c of greater than 9. 20. History of hypercholesterolemia. 21. Proteinuria. 22. History of appendectomy, cholecystectomy, history of common bile duct stent. 23. 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 24. Left putamen, left basal ganglia lacunar infarct. 25. Bilateral epididymal cyst. 26. Small left hydrocele. 27. Right epididymal cyst. 28. History of coronary artery disease, history of coronary angioplasty, history of myocardial infarction, history of angioplasty and stent placement, history of 70% stenosis of the mid left anterior descending artery. 29. History of 70% in-stent restenosis of the mid left anterior descending artery. 30. 50% stenosis of the proximal left circumflex artery. 31. 80% stenosis of the proximal right coronary artery with mild in-stent restenosis of the distal right coronary artery stent. 32. Left ventricular ejection fraction of 70%. 33. Status post angioplasty and stent placement of proximal right coronary artery. 34. Severe proximal right coronary artery stenosis. 35. Significant left anterior descending artery in-stent restenosis. 36. Moderate diffuse triple-vessel coronary artery disease. 37. Moderate in-stent restenosis with 60% stenosis of the mid left anterior descending artery. 38. 40% stenosis of the proximal left circumflex and 50% stenosis of the mid left circumflex. 39. Widely patent mid right coronary artery stent. 40. 50% in-stent restenosis of the distal right coronary artery stent. 41. Left ventricular ejection fraction of 60% on the last cardiac catheterization of 10/2017. 42. History of moderate diffuse coronary artery disease with [id number] in-stent restenosis of the right coronary artery and left anterior descending artery. 43. Left ventricular ejection fraction of 62%. 44. Hypertensive cardiovascular disease. 45. Grade 1 abnormal relaxation pattern. 46. History of syncope versus syncopal convulsion secondary to hypoglycemia. 47. Urinary bladder hypertrophy. 48. History of prostatic hypertrophy. 49. History of hyperlipidemia. 50. History of 40 years of nicotine dependence. 51. History of dyslipidemia. 52. History of myocardial infarction, history of multivessel coronary artery disease, history of angioplasty and stent placement, history of cholecystectomy and appendectomy, history of right eye cataract surgery, history of heavy nicotine addiction and dependence. Plan at this time, patient is to be admitted to [facility]. Patient has been ordered repeat labs. Thyroid panel, hemoglobin A1c, lipid panel, vitamin D 25-hydroxy have been ordered. Patient has been ordered repeat CBC. ESR has been ordered. Blood cultures, sputum cultures and urine culture ordered. Patient has been ordered GI and Pulmonary evaluation. Patient has been referred to clinical document improvement educator, TCU evaluation ordered. Procalcitonin level ordered. CURRENT MEDICATIONS: Mucomyst nebulizer 20% 4 mL q.6 hours, Cardizem 30 mg q.6, Cozaar 25 mg daily, doxycycline 100 mg p.o. q.12, Flomax 0.4 mg daily. Patient is started on Humalog 5 units with breakfast, lunch and dinner, Humalog high-dose sliding scale coverage and Levemir 30 units subcu a.m., Levemir 15 units p.m., Lipitor 10 mg daily. Patient has been given magnesium. Patient is on GI prophylaxis, Rocephin 1 g IV daily, IV fluid 0.9 normal saline at 100 mL an hour, Solu-Medrol 40 mg IV q. 12, Tessalon Perles 200 three times a day, Xopenex nebulizer 0.63 q.6 hours. Patient has received Zithromax at 500 mg daily. Patient has been ordered CAT scan of the abdomen and pelvis for evaluation of the questionable splenic hematoma. Repeat EKG ordered. Heart healthy diet ordered. Patient has been ordered out of bed, intake and output, fingerstick blood sugar. NATANAEL stockings and SCDs ordered. Patient's condition, diagnoses, need for further diagnostic therapeutic interventions were discussed and explained to the patient and the patient's son, Emily who was present at the bedside. All details discussed and explained to the patient. All questions concerned answered to the patient and the patient's son in layman's language. Dictated and electronically signed, not read. Jose Castillo MD
[2017-11-10 06:58] LABS: BASO # 0.02 K/mm3 (0.0-2.0); BASO % 0.2 % (0.0-3.0); EOS % 0.2 % (1.5-5.0); GRAN # 9.38 (1.4-6.5); GRAN % 84.8 % (50.0-68.0); HEMOGLOBIN 11.5 g/dL (14.0-18.0); LYMPH # 1.4 (1.2-3.4); LYMPH % 12.7 % (22.0-35.0); MEAN CELL VOLUME 78.2 fl (80.0-105.0); MEAN CORPUSCULAR HEMOGLOBIN 25.3 pg (25.0-35.0); MEAN CORPUSCULAR HGB CONC 32.4 g/dl (31.0-37.0); MEAN PLATELET VOLUME 11.7 fl (7.0-11.0); MONO # 0.2 (0.1-0.6); MONO % 2.1 % (1.0-6.0); RBC 4.54 10^6/uL (3.5-6.1); RED CELL DISTRIBUTION WIDTH 14.4 % (11.5-14.5); WHITE BLOOD COUNT 11.1 10^3/ul (4.5-11.0)
[2017-11-10] MEDS: Budesonide 0.5 mg/2 ml Inhal Susp UD IH SCH ×2 (07:09→19:55)
[2017-11-10 07:26] LABS: FREE T4 1.41 ng/dL (0.78-2.19)
[2017-11-10 07:29] LABS: LDL CHOLESTEROL 43 mg/dL (0-129)
[2017-11-10] MEDS: Insulin Lispro (HUMAlog) HIGH Coverage SC SCH ×3 (07:48→17:03)
[2017-11-10] MEDS: Insulin Reg-MEDIUM-Coverage SC SCH (07:49)
[2017-11-10] MEDS: Insulin Lispro 1 UNITS/0.01 ML SC SCH (07:49)
[2017-11-10 07:55] LABS: ALB/GLOB RATIO 1.1 (1.1-1.8); ALBUMIN 3.4 g/dL (3.0-4.8); ALT/SGPT 31 U/L (7-56); AST/SGOT 20 U/L (17-59); BILIRUBIN,DIRECT 0.3 mg/dL (0.0-0.4); BLOOD UREA NITROGEN 34 mg/dL (7-21); CALCIUM 9.4 mg/dL (8.4-10.5); GFR AFRICAN-AMERICAN > 60; GFR NON-AFRICAN AMERICAN 54; HDL CHOLESTEROL 31 mg/dL (29-60); MAGNESIUM 1.9 mg/dL (1.7-2.2)
[2017-11-10 08:56] LABS: T4 7.7 ug/dL (5.5-11.0)
[2017-11-10] MEDS: MethylPREDNISolone 40 mg Vial IVP SCH ×2 (09:11→21:25)
[2017-11-10] MEDS: Azithromycin 500MG/NS 250ml 500 MG/250 ML BAG IVPB SCH (09:12)
[2017-11-10] MEDS: cefTRIAXone 1 gm 1 GM/100 ML BAG IVPB SCH (09:12)
[2017-11-10] MEDS ORDERED: Enoxaparin 40 mg Syringe SC SCH (10:00)
[2017-11-10] MEDS ORDERED: Non Formulary Medication (Simvastatin [Simvastatin] 10 MG) PO SCH (10:00)
[2017-11-10] MEDS ORDERED: Pantoprazole 40 mg EC Tab PO SCH (10:00)
[2017-11-10] MEDS ORDERED: Insulin Detemir 100 units/ml Vial (Levemir) SC SCH (10:00)
--- NOTE | 2017-11-10 10:23 | CP.PCM.PN ---
Subjective - Date & Time of Evaluation Date of Evaluation: 11/10/17 Time of Evaluation: 09:00 - Subjective Subjective: PGY1 Medicine Note for Dr. Castillo Patient seen and examined at bedside. Patient sugars remained persistently high overnight. Basal insulin was added to regimen. Patient states breathing hs improved. He is tolerating diet. He has no other complaints at this time. Objective - Vital Signs/Intake and Output Vital Signs (last 24 hours): Temp Pulse Resp BP Pulse Ox 98.1 F 80 20 138/75 96 11/10/17 07:30 11/10/17 09:12 11/10/17 07:30 11/10/17 09:12 11/10/17 07:30 Intake and Output: 11/10/17 11/10/17 06:59 18:59 Intake Total 2180 Balance 2180 - Medications Medications: Current Medications Acetylcysteine (Acetylcysteine 20%) 4 ml IH Q6H JESSICA Last Admin: 11/10/17 07:09 Dose: 4 ml Atorvastatin Calcium (Lipitor) 10 mg PO DIN JESSICA Benzonatate (Tessalon Perles) 200 mg PO TID JESSICA Budesonide (Pulmicort Respules) 0.5 mg IH [id number] JESSICA Last Admin: 11/10/17 07:09 Dose: 0.5 mg Diltiazem HCl (Cardizem) 30 mg PO Q6H JESSICA Last Admin: 11/10/17 09:12 Dose: 30 mg Doxycycline Hyclate (Doryx) 100 mg PO Q12 JESSICA PRN Reason: Protocol Last Admin: 11/10/17 09:11 Dose: 100 mg Sodium Chloride (Sodium Chloride 0.9%) 1,000 mls @ 100 mls/hr IV .Q10H JESSICA Stop: 11/10/17 11:00 Last Admin: 11/10/17 02:18 Dose: 100 mls/hr Ceftriaxone Sodium (Rocephin 1 Gram Ivpb) 1 gm in 100 mls @ 100 mls/hr IVPB DAILY JESSICA PRN Reason: Protocol Last Admin: 11/10/17 09:12 Dose: 100 mls/hr Azithromycin (Zithromax 500mg In Ns) 500 mg in 250 mls @ 167 mls/hr IVPB DAILY JESSICA PRN Reason: Protocol Last Admin: 11/10/17 09:12 Dose: 167 mls/hr Insulin Detemir (Levemir) 30 unit SC QAM [facility] Last Admin: 11/10/17 09:16 Dose: 30 unit Insulin Detemir (Levemir) 15 unit SC QPM [facility] Last Admin: 11/09/17 17:14 Dose: 15 unit Insulin Human Lispro (Humalog) 5 units SC ACB [facility] Last Admin: 11/10/17 07:49 Dose: 5 units Insulin Human Lispro (Humalog) 5 units SC DAILY@1145 [facility] Insulin Human Lispro (Humalog) 5 units SC DAILY@1745 [facility] Insulin Human Lispro (Humalog High) 0 units SC AC [facility] PRN Reason: Protocol Last Admin: 11/10/17 07:48 Dose: 10 units Levalbuterol HCl (Xopenex) 0.63 mg IH Q5OMLPT [facility] Last Admin: 11/10/17 07:09 Dose: 0.63 mg Losartan Potassium (Cozaar) 25 mg PO DAILY [facility] Last Admin: 11/10/17 09:12 Dose: 25 mg Methylprednisolone (Solu-Medrol) 30 mg IVP Q12 [facility] Last Admin: 11/10/17 09:11 Dose: 30 mg Pantoprazole Sodium (Protonix Ec Tab) 40 mg PO DAILY [facility] Last Admin: 11/10/17 09:12 Dose: 40 mg Promethazine HCl/Codeine (Phenergan/Codeine Oral Syrup) 5 ml PO Q4H PRN PRN Reason: Cough Tamsulosin HCl (Flomax) 0.4 mg PO DAILY [facility] Last Admin: 11/10/17 09:12 Dose: 0.4 mg - Labs Labs: 11/10/17 06:15 11/10/17 06:15 PT 12.4 SECONDS (9.4-12.5) 11/09/17 18:09 INR 1.09 (0.93-1.08) H 11/09/17 18:09 APTT 29.6 Seconds (25.1-36.5) 11/09/17 18:09 - Constitutional Appears: No Acute Distress - Head Exam Head Exam: ATRAUMATIC, NORMOCEPHALIC - Eye Exam Eye Exam: EOMI, Normal appearance Pupil Exam: PERRL - ENT Exam ENT Exam: Mucous Membranes Moist - Respiratory Exam Respiratory Exam: Wheezes, NORMAL BREATHING PATTERN. absent: Accessory Muscle Use, Respiratory Distress - Cardiovascular Exam Cardiovascular Exam: REGULAR RHYTHM, +S1, +S2 - GI/Abdominal Exam GI & Abdominal Exam: Distended, Soft, Normal Bowel Sounds. absent: Firm, Guarding, Rigid, Tenderness - Extremities Exam Extremities Exam: Pedal Edema - Neurological Exam Neurological Exam: Alert, Awake, Oriented x3 - Psychiatric Exam Psychiatric exam: Normal Affect, Normal Mood - Skin Skin Exam: Dry, Intact, Normal Color, Warm Assessment and Plan - Assessment and Plan (Free Text) Plan: 72 M with past medical history of CAD, DM, HTN presents for shortness of breath likely secondary to COPD exacerbation Shortness of breath Pulm consult, Dr. Hernandez, help appreciated CXR: no active disease CT chest with contrast : 5 mm pulm nodule, follow up in 6 months and subcapsular splenic mass possible hematoma (see full report) Mucomyst 4 ml IH Q6H Xopenex 0.63 mg IH Q6H troponins negative f/u influenza a/b f/u cultures Solu-medrol 30 mg IVP Q12H Rocephin 1 gm IVPB daily Azithromycin 500 mg IVPB daily Splenic Mass Ct abdomen/pelvis: 11 mm subcapsular splenic hematoma likely (see full report) Hep panel Hiv 1&2 abs Cough Promethazine/Codeine 5 ml Q4H PRN HTN Cozaar 25 mg po daily Cardizem 30 mg Q6H DM ISS Insulin Detemir 30 units in AM and 15 units in PM Insulin lispro 5 units TID Accuchecks ACHS HHD mod carb diet CAD Atorvastatin 10 mg PO DIN BPH Flomax 0.4 mg PO daily Prophylaxis Lovenox Protonix Discussed with Dr. Anna Mercedes PGY1
--- NOTE | 2017-11-10 11:42 | CT ---
PROCEDURE: CT Abdomen and Pelvis without intravenous contrast HISTORY: SPLENIC ??HEMATOMA COMPARISON: None. TECHNIQUE: Without contrast.. Contrast Dose: 0 Radiation dose: Total exam DLP = 409.41 mGy-cm. This CT exam was performed using one or more of the following dose reduction techniques: Automated exposure control, adjustment of the mA and/or kV according to patient size, and/or use of iterative reconstruction technique. FINDINGS: LOWER THORAX: Unremarkable. LIVER: Normal size, contour and attenuation. No mass. Several punctate calcifications consistent with old calcified granulomata. No biliary ductal dilatation. GALLBLADDER AND BILE DUCTS: Status post cholecystectomy. Biliary stent noted in appropriate position. PANCREAS: Unremarkable. No gross lesion or ductal dilatation. SPLEEN: The spleen is significant for a thin rim about the periphery of the spleen higher in attenuation than the remainder of the spleen. This measures approximately 9 mm in width. On contrast-enhanced CT examination of the same date, this thin rim was lower in attenuation than the enhancing splenic parenchyma. This may represent a subcapsular hematoma. There is no discrete splenic mass. There is no perisplenic hemorrhage appreciated. ADRENALS: Unremarkable. No mass. KIDNEYS AND URETERS: Unremarkable. No hydronephrosis. No solid massRight renal atrophy. Excreted contrast material from earlier chest CT examination is seen within the renal collecting system. No left hydronephrosis. VASCULATURE: No evidence of abdominal aortic aneurysm. There is mild abnormal soft tissue density seen about the infrarenal go abdominal aorta of uncertain significance. BOWEL: Unremarkable. No obstruction. No gross mural thickening. APPENDIX: Unremarkable. Normal appendix. PERITONEUM: Unremarkable. No free fluid. No free air. LYMPH NODES: Unremarkable. No enlarged lymph nodes. BLADDER: Suboptimally distended. Circumferential mural thickening, nonspecific. Possible bladder outlet obstruction. REPRODUCTIVE: Mild prostate enlargement. BONES: No acute fracture. OTHER FINDINGS: None. IMPRESSION: 9 mm crescentic rim of high attenuation about the spleen on this unenhanced CT study possibly representing a subcapsular hematoma. This could be further elucidated with abdominal ultrasound examination. Status post cholecystectomy. Biliary stent. Incidentally noted mild abnormal soft tissue density about the infrarenal abdominal aorta, uncertain significance. No evidence of abdominal aortic aneurysm.
[2017-11-10] MEDS ORDERED: Insulin Lispro 1 UNITS/0.01 ML SC SCH ×2 (11:45→17:45)
--- NOTE | 2017-11-10 12:36 | CON ---
DATE: 11/10/2017 PULMONARY CONSULTATION REFERRING PHYSICIAN: Jose Castillo MD REASON FOR CONSULTATION: Chronic obstructive pulmonary disease. HISTORY OF PRESENT ILLNESS: The patient is a 72-year-old male, with past medical history significant for chronic obstructive pulmonary disease, positive former heavy smoker, coronary artery disease, status post cardiac stent, diabetes mellitus, hypertension, who presents to [facility] with a 2-day history of worsening shortness of breath at rest, dyspnea on exertion, cough, and sputum production. There is no history of chest pain, coughing up of blood, or chest pain - made worse with deep respirations. There is no history of temperatures, chills or infectious exposure. There is no history of night sweats, weight loss or appetite change prior to the above events. No history of leg or calf pains. No history of syncope or diaphoresis. No history of recent travel or trauma. REVIEW OF SYSTEMS: No history of nausea, vomiting or diarrhea. No acute urinary symptoms. No new neurologic or musculoskeletal complaints. Rest of the review of systems is negative. ALLERGIES: NO KNOWN ALLERGIES. SOCIAL HISTORY: Positive for former heavy tobacco usage, no alcohol. FAMILY HISTORY: No inheritable diseases. HOME MEDICATIONS: Include vitamins, Flomax, simvastatin, Lopressor, Glucophage, Cozaar, and Lantus. PHYSICAL EXAMINATION GENERAL: The patient is not short of breath at rest. He is not using accessory muscles for breathing. VITAL SIGNS: Temperature is 97.8, pulse is 79, respirations 18, blood pressure 119/64. Oxygen saturation on nasal cannula is 97%-98%. HEENT: Normocephalic, atraumatic. No JVD. CARDIOVASCULAR: Positive S1, S2. No S3 gallop. LUNGS: Decreased breath sounds at the bases. Minimal rhonchi. Few tiny wheezes. EXTREMITIES: No clubbing, cyanosis or edema. Calves are nontender to palpation. GI: Abdomen is soft, nontender and nondistended. Bowel sounds are positive. SKIN: No acute rash. NEUROLOGIC: Limited at the present time. PERTINENT LABORATORY DATA: CAT scan of the chest was done yesterday and reviewed. There is a 5-mm nodule adjacent to the fissure - located in the left upper lobe. This nodule is stable in appearance compared to the prior CAT scan. There is no evidence of focal consolidation, mass lesion, or lymphadenopathy. CBC: White count 10.0, hemoglobin 14.1, hematocrit 43.1, platelets of 168,000. Complete metabolic profile: BUN 25, glucose 196, magnesium 1.2, alkaline phosphatase 211, LDH 320. Rest of the metabolic profiles within normal limits. IMPRESSION: 1. Acute bronchitis. 2. Chronic obstructive pulmonary disease. 3. Solitary pulmonary nodule - left upper lobe. 4. Coronary artery disease. 5. Diabetes mellitus. PLAN: The patient presents to [facility] with a 2-day history of worsening pulmonary symptoms. I did review the CAT scan of the chest. There is a very small left upper lobe nodule noted - also seen on previous CAT scan. There are no other acute or significant abnormalities on the chest CAT scan. On physical exam, there is mild bronchospasm noted. There is no significant alveolar-arterial gradient. Oxygen saturation on nasal cannula is 97%-98%. I will continue the current nebulizer treatments and add inhaled Pulmicort this morning. I will also try decreasing the intravenous steroids this morning. The patient remains on antibiotic therapy. There are no temperatures noted. There is no leukocytosis. The patient does state to feeling much better this morning and is clinically improved. Additional pulmonary intervention will be based on the clinical status of the patient. Consultation with Dr. Garcia (Gastroenterology) has been ordered - in reference to a possible splenic abnormality (on CAT scan). I will discuss the above with Dr. Castillo later this morning. Thank you very much for this pulmonary consultation. Jonh Hernandez MD MTDRyan
[2017-11-10] MEDS: Sod Polystyrene Sulf 15 gm/60 ml Susp PO SCH ×2 (13:08→17:02)
--- NOTE | 2017-11-10 14:26 | US ---
PROCEDURE: Ultrasound of spleen HISTORY: perisplenic collection COMPARISON: CT abdomen/ pelvis 11/09/2017 TECHNIQUE: Transabdominal FINDINGS: The spleen measures 10.2 cm in greatest dimension. The majority of the spleen shows homogeneous echotexture of the parenchyma. There is a rim of echogenic material about the periphery of the spleen. There is no vascularity demonstrated within this peripheral rim, on color Doppler interrogation. This corresponds to a thin rim of high attenuation on noncontrast CT examination, likely reflecting subacute or acute subcapsular hematoma. There is no splenic mass identified. There is no evidence of ascites. IMPRESSION: Suspect acute to subacute subcapsular hemorrhage of the spleen. Follow-up imaging advised.
[2017-11-10 17:02] LABS: HEPATITIS B SURFACE AG Negative (NEGATIVE)
[2017-11-10] MEDS: Insulin Detemir 100 units/ml Vial (Levemir) SC SCH (17:06)
[2017-11-10 17:08] LABS: HEPATITIS A IGM NEGATIVE (NEGATIVE); HEPATITIS B CORE AB NEGATIVE (NEGATIVE)
[2017-11-10 17:19] LABS: HEPATITIS C ANTIBODY NEGATIVE (NEGATIVE)
[2017-11-10] MEDS ORDERED: Dorzolamide 2% Opht Sol 10ml OU SCH (18:00)
[2017-11-10] MEDS ORDERED: Brimonidine 0.15% 50 DROP/5 ML BOTTLE OU SCH (18:00)
[2017-11-10 18:40] LABS: HEMOGLOBIN 12.2 g/dL (14.0-18.0); MEAN CELL VOLUME 78.9 fl (80.0-105.0); MEAN CORPUSCULAR HEMOGLOBIN 25.7 pg (25.0-35.0); MEAN CORPUSCULAR HGB CONC 32.5 g/dl (31.0-37.0); MEAN PLATELET VOLUME 10.5 fl (7.0-11.0); RBC 4.75 10^6/uL (3.5-6.1); RED CELL DISTRIBUTION WIDTH 14.6 % (11.5-14.5); WHITE BLOOD COUNT 18.1 10^3/ul (4.5-11.0)
--- NOTE | 2017-11-10 19:46 | CARD ---
APPROVED REPORT EKG Measurement Heart [id number] <Conclusion> Normal sinus rhythm Right bundle branch block Abnormal ECG
[2017-11-10] MEDS ORDERED: Latanoprost 2.5 ml Opht Soln OU SCH ×2 (22:00)
--- NOTE | 2017-11-10 22:25 | CP.PCM.CON ---
History of Present Illness - History of Present Illness History of Present Illness: Surgery consult note for Dr. Mary Consulted for: splenic hematoma Patient is a 72M with PMH of CAD with coronary artery stents , HTN, COPD, and DM who was admitted for respiratory distress due to bronchitis. On CT of the chest, subcapsular splenic fluid collection was found incidentally. 9mm wide peripheral rim of subcapsular splenic fluid was confirmed on the CT of the abdomen and pelvis with no deven-splenic hemorrhage. US of the spleen today revealed a rim of echogenic material likely representing subacute vs acute subcapsular hematoma. Patient denies any abdominal pain, flank pain, bruising, nausea, vomiting, diarrhea, constipation, melena, weakness, light headedness, or any other symptoms other than cough. Patient denies any trauma to the abdomen or back or any falls. Patient had been on anticoagulation with ASA and plavix for CAD until 6 months ago when he had bleeding in his eyes and stopped taking both. Patient was tachycardic yesterday with HR 110-120s but is now 70's with PO cardizem. PMH: HTN, DM, CAD, BPH, COPD, GERD PSH: cardiac cath, coronary artery stent x6, LIHR, appendectomy, cholecystectomy with possible CBD stent as seen on CT, biopsy of left inguinal lymph node ALL: NKDA Social: former heavy smoker--quit 10 yrs ago, denies ETOH or illicit substances , lives at home Family history: non-contributory Review of Systems - Review of Systems All systems: reviewed and no additional remarkable complaints except (as per HPI ) Past Patient History - Infectious Disease Hx of Infectious Diseases: None - Past Medical History & Family History Past Medical History?: Yes Past Family History: Reviewed and not pertinent - Past Social History Smoking Status: Former Smoker Alcohol: None Drugs: Denies Home Situation {Lives}: With Family - CARDIAC Hx Cardiac Disorders: Yes Hx Hypertension: Yes Other/Comment: coronary artery disease s/p cath and stents - PULMONARY Hx Chronic Obstructive Pulmonary Disease (COPD): Yes - NEUROLOGICAL Hx Neurological Disorder: No - HEENT Hx HEENT Problems: Yes Hx Cataracts: Yes (Right Eye) - RENAL Hx Chronic Kidney Disease: No - ENDOCRINE/METABOLIC Hx Diabetes Mellitus Type 2: Yes - HEMATOLOGICAL/ONCOLOGICAL Hx Blood Disorders: No - INTEGUMENTARY Hx Dermatological Problems: No - MUSCULOSKELETAL/RHEUMATOLOGICAL Hx Musculoskeletal Disorders: No Hx Falls: No - GASTROINTESTINAL Hx Gastrointestinal Disorders: Yes Hx Gall Bladder Disease: Yes (CHOLECYSTECTOMY) Hx Gastroesophageal Reflux: Yes - GENITOURINARY/GYNECOLOGICAL Hx Genitourinary Disorders: Yes Hx Prostate Problems: Yes - PSYCHIATRIC Hx Emotional Abuse: No Hx Physical Abuse: No Hx Substance Use: No - SURGICAL HISTORY Hx Surgeries: Yes (5 STENTS) Hx Appendectomy: Yes Hx Cardiac Catheterization: Yes Hx Cholecystectomy: Yes Hx Coronary Stent: Yes (5 placed about 3 years ago) Hx Herniorrhaphy: Yes (left inguinal) Other/Comment: left inguinal lymph node biopsy - ANESTHESIA Hx Anesthesia Reactions: No Meds Allergies/Adverse Reactions: Allergies Allergy/AdvReac Type Severity Reaction Status Date / Time No Known Allergies Allergy Verified 11/09/17 20:13 - Medications Medications: Current Medications Acetylcysteine (Acetylcysteine 20%) 4 ml IH Q6H COUNTS [facility]CLUDE 234 BEDS AT THE [facility] Last Admin: 11/10/17 19:55 Dose: 4 ml Atorvastatin Calcium (Lipitor) 10 mg PO DIN COUNTS INCLUDE 234 BEDS AT THE [facility] Last Admin: 11/10/17 17:03 Dose: 10 mg Benzonatate (Tessalon Perles) 200 mg PO TID COUNTS INCLUDE 234 BEDS AT THE [facility] Last Admin: 11/10/17 21:24 Dose: 200 mg Brimonidine Tartrate (Alphagan P 0.15% Opht) 1 drop OU BID COUNTS INCLUDE 234 BEDS AT THE [facility] Last Admin: 11/10/17 19:00 Dose: 1 drop Budesonide (Pulmicort Respules) 0.5 mg IH [id number] COUNTS INCLUDE 234 BEDS AT THE [facility] Last Admin: 11/10/17 19:55 Dose: 0.5 mg Diltiazem HCl (Cardizem) 30 mg PO Q6H COUNTS INCLUDE 234 BEDS AT THE [facility] Last Admin: 11/10/17 21:24 Dose: 30 mg Dorzolamide HCl (Trusopt) 0 ml OU BID COUNTS INCLUDE 234 BEDS AT THE [facility] Last Admin: 11/10/17 18:58 Dose: 1 drop Doxycycline Hyclate (Doryx) 100 mg PO Q12 COUNTS INCLUDE 234 BEDS AT THE [facility] PRN Reason: Protocol Last Admin: 11/10/17 21:24 Dose: 100 mg Ceftriaxone Sodium (Rocephin 1 Gram Ivpb) 1 gm in 100 mls @ 100 mls/hr IVPB DAILY [facility]S INCLUDE 234 BEDS AT THE [facility] PRN Reason: Protocol Last Admin: 11/10/17 09:12 Dose: 100 mls/hr Azithromycin (Zithromax 500mg In Ns) 500 mg in 250 mls @ 167 mls/hr IVPB DAILY COUNTS INCLUDE 234 BEDS AT THE [facility] PRN Reason: Protocol Last Admin: 11/10/17 09:12 Dose: 167 mls/hr Insulin Detemir (Levemir) 30 unit SC QAM COUNTS INCLUDE 234 BEDS AT THE [facility] Last Admin: 11/10/17 09:16 Dose: 30 unit Insulin Detemir (Levemir) 15 unit SC QPM [facility]S INCLUDE 234 BEDS AT THE [facility] Last Admin: 11/10/17 17:06 Dose: 15 unit Insulin Human Lispro (Humalog) 5 units SC ACB COUNTS INCLUDE 234 BEDS AT THE [facility] Last Admin: 11/10/17 07:49 Dose: 5 units Insulin Human Lispro (Humalog) 5 units SC DAILY@1145 COUNTS INCLUDE 234 BEDS AT THE [facility] Last Admin: 11/10/17 13:08 Dose: 5 units Insulin Human Lispro (Humalog) 5 units SC DAILY@1745 COUNTS INCLUDE 234 BEDS AT THE [facility] Last Admin: 11/10/17 17:03 Dose: 5 units Insulin Human Lispro (Humalog High) 0 units SC AC COUNTS INCLUDE 234 BEDS AT THE [facility] PRN Reason: Protocol Last Admin: 11/10/17 17:03 Dose: 4 units Latanoprost (Xalatan Opht) 0 ml OU HS COUNTS INCLUDE 234 BEDS AT THE [facility] Last Admin: 11/10/17 21:25 Dose: 2.5 ml Levalbuterol HCl (Xopenex) 0.63 mg IH [id number] COUNTS INCLUDE 234 BEDS AT THE [facility] Last Admin: 11/10/17 19:56 Dose: 0.63 mg Losartan Potassium (Cozaar) 25 mg PO DAILY COUNTS INCLUDE 234 BEDS AT THE [facility] Last Admin: 11/10/17 09:12 Dose: 25 mg Methylprednisolone (Solu-Medrol) 30 mg IVP Q12 COUNTS INCLUDE 234 BEDS AT THE [facility] Last Admin: 11/10/17 21:25 Dose: 30 mg Pantoprazole Sodium (Protonix Ec Tab) 40 mg PO DAILY COUNTS INCLUDE 234 BEDS AT THE [facility] Last Admin: 11/10/17 09:12 Dose: 40 mg Promethazine HCl/Codeine (Phenergan/Codeine Oral Syrup) 5 ml PO Q4H PRN PRN Reason: Cough Tamsulosin HCl (Flomax) 0.4 mg PO DAILY COUNTS INCLUDE 234 BEDS AT THE [facility] Last Admin: 11/10/17 09:12 Dose: 0.4 mg Physical Exam - Constitutional Appears: Well, Non-toxic, No Acute Distress - Head Exam Head Exam: ATRAUMATIC, NORMOCEPHALIC - Eye Exam Eye Exam: Normal appearance. absent: Conjunctival injection, Scleral icterus - ENT Exam ENT Exam: Mucous Membranes Moist, Normal Oropharynx - Respiratory Exam Respiratory Exam: NORMAL BREATHING PATTERN. absent: Accessory Muscle Use, Respiratory Distress - Cardiovascular Exam Cardiovascular Exam: RRR - GI/Abdominal Exam GI & Abdominal Exam: Soft. absent: Distended, Guarding, Mass, Organomegaly, Rebound, Tenderness - Extremities Exam Extremities exam: Positive for: pedal pulses present. Negative for: calf tenderness, pedal edema - Back Exam Back exam: NORMAL INSPECTION. absent: CVA tenderness (L), CVA tenderness (R) Additional comments: no ecchymosis, no rib tenderness - Neurological Exam Neurological exam: Alert, Oriented x3 - Psychiatric Exam Psychiatric exam: Normal Affect, Normal Mood - Skin Skin Exam: Dry, Intact, Normal Color, Warm Results - Vital Signs Recent Vital Signs: Last Vital Signs Temp 97.3 F L 11/10/17 14:00 Pulse 75 11/10/17 21:24 Resp 20 11/10/17 14:00 BP 142/77 11/10/17 21:24 Pulse Ox 99 11/10/17 14:00 - Labs Result Diagrams: 11/10/17 18:37 11/10/17 06:15 Labs: Laboratory Results - last 24 hr 11/10/17 11/10/17 11/10/17 15:58 18:37 18:37 WBC 18.1 H D RBC 4.75 Hgb 12.2 L Hct 37.5 L MCV 78.9 L MCH 25.7 MCHC 32.5 RDW 14.6 H Plt Count 169 MPV 10.5 POC Glucose (mg/dL) 202 H Blood Type AB POSITIVE Antibody Screen Negative BBK History Checked Patient has bt 11/10/17 21:03 WBC RBC Hgb Hct MCV MCH MCHC RDW Plt Count MPV POC Glucose (mg/dL) 198 H Blood Type Antibody Screen BBK History Checked - Imaging and Cardiology CT scan - abdomen Status: Image reviewed by me, Report reviewed by me CT scan - chest Status: Image reviewed by me, Report reviewed by me US - abdomen Status: Image reviewed by me, Report reviewed by me Assessment & Plan - Assessment and Plan (Free Text) Assessment: 72 year old male with subcapsular splenic fluid collection concerning for grade II-III acute vs subacute splenic hematoma. Patient currently hemodynamically stable on PO cardizem Hgb dropped from 14.1 to 11.5 but then improved to 12.2 over 12 hours Plan: No emergent surgical intervention indicated--patient is hemodynamically stable. H/H was stable throughout the day today, Patient is completely asymptomatic, no change in size of fluid collection from CT yesterday to US today, and fluid is contained under the capsule Monitor vitals closely for hypotension Monitor urine output Monitor H/H Q8 If patient deteriorates clinically or has a drop in H/H would recommend IR angioembolization of the splenic artery and/or possible OR for splenectomy Continue antibiotics for bronchitis per ID/primary May recommend repeat US of spleen to re-assess for growing hematoma, depending on clinical course Further recommendations per Dr. Usman Brown [phone]
--- NOTE | 2017-11-10 23:25 | CON ---
DATE: 11/10/2017 GASTROENTEROLOGY CONSULTATION REQUESTING PHYSICIAN: Jose Castillo MD REASON FOR CONSULTATION: I have been as ked to see this 72-year-old male who is admitted to the hospital with increasing shortness of breath and exacerbation of COPD. On CT scan of the chest, an incidental finding of a subcapsular collection around the spleen was noted. The patient subsequently underwent a CT scan of the abdomen and pelvis, which shows a peripheral rim measuring 9 mm wide of higher attenuation collection. There is concern of a subcapsular perisplenic hematoma. There is no laceration or other injury to the spleen notable. The patient denies any trauma to the abdomen or fall. He denies any abdominal pain, nausea, or vomiting. His breathing has improved. PAST MEDICAL HISTORY: Notable for COPD, hypertension, diabetes mellitus, coronary artery disease, status post coronary artery stent placement years ago, [place]. SOCIAL HISTORY: The patient has smoked over two packs of cigarettes per day for many years. He denies alcohol use. PAST SURGICAL HISTORY: Notable for cholecystectomy. FAMILY HISTORY: Noncontributory. REVIEW OF SYSTEMS: A 14-point review of systems is notable for increasing shortness of breath. MEDICATIONS AT HOME: Include vitamin B complex, Flomax 0.4 mg once a day, simvastatin 10 mg daily, Lopressor 25 mg daily, Glucophage 1000 mg twice a day, losartan 25 mg daily, Lantus insulin 30 units q.a.m. and 15 units q.p.m. PHYSICAL EXAMINATION: GENERAL: Well-developed male, walking around in his room, in no acute distress. VITAL SIGNS: Reveal temperature of 98.1, blood pressure 122/64, heart rate 79. HEENT: Reveals sclerae to be white. Conjunctivae pink. NECK: Supple. CHEST: Reveals lungs to be clear. HEART: Reveals regular rate and rhythm. ABDOMEN: Soft, nontender. No mass. No guarding. EXTREMITIES: Show no edema. LABORATORY DATA: Reveal white blood cell count 11.1; hemoglobin 11.5, down from 14.1 on 11/09/2017; sed rate is 33. Chemistries reveal potassium 5.4, BUN 34, creatinine 1.3. AST, ALT, alkaline phosphatase were all normal. IMPRESSION: A 72-year-old male with exacerbation of chronic obstructive pulmonary disease, diabetes mellitus, coronary artery disease with an abnormal CAT scan of the abdomen with a rim of complex fluid around the periphery of the spleen, one must rule out a subcapsular hematoma. I doubt that this is a perisplenic abscess as there is no significant leukocytosis or fever. RECOMMENDATIONS: 1. We will request an ultrasound of the spleen to further define this peripheral rim of fluid. 2. Follow serial hematocrits. Lj Garcia MD
[2017-11-11 00:18] LABS: HEMOGLOBIN 11.5 g/dL (14.0-18.0); MEAN CELL VOLUME 78.9 fl (80.0-105.0); MEAN CORPUSCULAR HEMOGLOBIN 25.3 pg (25.0-35.0); MEAN CORPUSCULAR HGB CONC 32.1 g/dl (31.0-37.0); RBC 4.54 10^6/uL (3.5-6.1); RED CELL DISTRIBUTION WIDTH 14.9 % (11.5-14.5); WHITE BLOOD COUNT 15.8 10^3/ul (4.5-11.0)
[2017-11-11] MEDS: Acetylcysteine 20% Inhal Soln (4ml) IH SCH ×2 (01:19→07:16)
[2017-11-11] MEDS: Levalbuterol 0.63 MG/3 ML Inhal Soln UD IH SCH ×2 (01:23→07:16)
--- NOTE | 2017-11-11 02:05 | PN ---
DATE: 11/10/2017 SUBJECTIVE: Patient is seen in room 563, bed 1. Patient is again seen lying in the bed. Overnight nurse's notes were reviewed. Patient was noted by the nurses to have dyspnea on exertion. Patient in the morning refused blood work ordered. PHYSICAL EXAMINATION: VITAL SIGNS: T-max 98.1. Heart rate over the last 12 to 24 hours down from 110, 114, 115 to 76, 79, 84. Blood pressure is averaging 143/84, 118/63, 122/64, 138/75. Respiration 20. O2 sat 96% to 99%. HEENT: Head examination normocephalic, atraumatic. HEENT examination shows pinkish pale conjunctivae. Anicteric sclerae. No oropharyngeal lesion. No neck rigidity. CHEST: Kyphosis. Positive rhonchi and decreasing wheezing noted in the upper lung [place] bilaterally, anterior-posterior bilaterally. CARDIOVASCULAR: Shows S1, S2, regular rhythm. Questionable soft systolic murmur left sternal border, right second intercostal space, left second intercostal space. ABDOMEN: Soft. Positive bowel sounds. No hepatosplenomegaly palpated at this time. No guarding. No rigidity. No rebound tenderness. GENITALIA: Male. RECTAL: Examination is deferred. EXTREMITIES: Shows no pitting edema, no calf tenderness. No Homans' sign. MUSCULOSKELETAL: Shows a body mass index of 25.1. NEUROLOGIC: Patient is alert, awake, responsive. Motor strength is 5/5 in the upper and lower extremities. DIAGNOSTICS: From 11/10, WBC 18.1, hemoglobin/hematocrit 12.2 and 37.5, platelets 169. Earlier CBC shows a WBC of 11.1, hemoglobin/hematocrit 11.5 and 35.5, platelet 172. Granulocytes 85. ESR 33. Abnormal chemistry, potassium 5.4, BUN 34, glucose 361, hemoglobin A1c 9.7, alk phos 162. Rest of the LFTs are normal. Troponin is negative x2. Cholesterol is 89, LDL 43, HDL 31. PSA is normal. Vitamin D 25-hydroxy 82. Procalcitonin level is negative. TSH, T4 is within normal limits. Patient's fingerstick blood sugar in the last 12 hours 202, 347, 322, 389, 472. Hepatitis A, B, C serologies and influenza serologies negative. Blood cultures negative, preliminary report. Patient has been ordered type and screen by Dr. Garcia. Patient's blood type is AB positive. Patient's splenic ultrasound, CT of the abdomen and pelvis was noted. EKG, which was done today is reviewed, which shows sinus rhythm, right bundle-branch block. Patient was seen by Pulmonary. Their recommendations noted. IMPRESSION AND PLAN: 1. Acute exacerbation of chronic obstructive pulmonary disease. 2. History of heavy nicotine addiction and dependence. 3. Questionable noncompliance with refusal to do laboratory data. 4. Tachycardia. 5. Uncontrolled hypertension. 6. Leukocytosis with granulocytosis. 7. Mild microcytic anemia. 8. Granulocytosis. 9. Elevated erythrocyte sedimentation rate of 33. 10. Uncontrolled diabetes mellitus with hyperglycemia and steroid-induced hyperglycemia. 11. Uncontrolled insulin-requiring diabetes mellitus with hemoglobin A1c of 9.7. 12. Non-hemolyzed hyperkalemia. 13. Elevated alkaline phosphatase. 14. Trace proteinuria, glycosuria, ketonuria. 15. Suspicious [id number] subcapsular splenic hemorrhage and hematoma. 16. Hepatic punctate calcification consistent with calcified hepatic granuloma. 17. Status post cholecystectomy with biliary stent placement. 18. Suboptimal urinary bladder distention with circumferential mural thickening, questionable bladder outlet obstruction. 19. Prostatomegaly. 20. Status post cholecystectomy. 21. Mild soft tissue density about infrarenal abdominal aorta, uncertain significance. 22. Deconditioning. 23. 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 24. 5-mm pulmonary nodule. 25. Gait dysfunction. 26. Right bundle-branch block. 27. History of myocardial infarction. 28. History of multiple angioplasties. 29. History of hypertensive cardiovascular disease. 30. Left ventricular ejection fraction of 62%. 31. Concentric left ventricular hypertrophy with grade 1 abnormal relaxation pattern. Plan at this time, patient has been ordered repeat labs. Blood, sputum, urine cultures. Patient's blood cultures, urine cultures are received, sputum cultures not obtained. CURRENT CONSULTATIONS: 1. Gastroenterology. 2. Patient has also been requested to be evaluated by Surgery for evaluation of splenic hematoma. 3. Pulmonary consultation ordered. 4. outreach and education social worker referral. 5. Diabetic education. 6. TCU evaluation ordered. CURRENT MEDICATIONS: Mucomyst nebulizer 20% 4 mL every 6 hours. Patient is on Alphagan eye drops 0.15% one drop both eyes b.i.d. Patient is on Cardizem 30 mg q. 6, Cozaar 25 mg daily, doxycycline 100 mg p.o. q. 12, Flomax 0.4 mg daily, Humalog 5 units with breakfast and lunch and dinner and Humalog high-dose sliding scale coverage. Patient is on Levemir 30 units with morning and Levemir 15 units with the night. Patient's fingerstick blood sugar is still elevated. If the patient's blood sugar continues to be elevated, patient's basal insulin will be modified and adjusted. Patient is on Lipitor 10 mg daily. Patient was given Kayexalate doses 30 g. Patient is on Protonix 40 daily, Pulmicort nebulizer 0.5 mg q. 12, Rocephin 1 g IV daily. Patient is on Solu-Medrol 30 mg IV q. 12 ordered by Pulmonary. Patient is on Tessalon Perles 200 three times a day, Trusopt eyedrops both eyes b.i.d., Xalatan eye drops 0.005% both eyes at bedtime, Xopenex nebulizer 0.63 mg every 6 hours. Patient is on oxygen 2 liters continuous. Repeat EKG ordered. Heart-healthy diet. Patient is ordered out of bed to chair, NATANAEL stockings, SCDs. Physical therapy, occupational therapy ordered. Patient has been ordered out of bed to chair. N[place]EL stockings, SCDs, VTE devices. Occupational therapy and physical therapy ordered. Patient's case has been referred to TCU for possible TCU transfer. Patient has been seen by social sciences lecturer. Patient has been ordered chest PT. Patient was not updated about his condition and diagnosis especially about his emphysema exacerbation and splenic hematoma and need for further diagnostic therapeutic intervention. At present, we are awaiting Gastroenterology, Surgery and Pulmonary evaluation and recommendation. Patient updated about his condition, diagnosis, test results and recommendation and all above explained in layman's language. All questions concerned answered. Dictated and electronically signed, not read. Jose Castillo MD
[2017-11-11] MEDS: Budesonide 0.5 mg/2 ml Inhal Susp UD IH SCH (07:16)
[2017-11-11 07:45] VITALS: BP 167/87; PULSE 81; TEMP 97.9; O2SAT 99
[2017-11-11 08:16] LABS: EOS % 0.1 % (1.5-5.0); GRAN # 13.48 (1.4-6.5); GRAN % 88.7 % (50.0-68.0); HEMOGLOBIN 11.7 g/dL (14.0-18.0); LYMPH # 1.2 (1.2-3.4); LYMPH % 7.8 % (22.0-35.0); MEAN CELL VOLUME 79.1 fl (80.0-105.0); MEAN CORPUSCULAR HEMOGLOBIN 25.2 pg (25.0-35.0); MEAN CORPUSCULAR HGB CONC 31.8 g/dl (31.0-37.0); MEAN PLATELET VOLUME 11.8 fl (7.0-11.0); MONO # 0.5 (0.1-0.6); MONO % 3.4 % (1.0-6.0); RBC 4.65 10^6/uL (3.5-6.1); RED CELL DISTRIBUTION WIDTH 14.9 % (11.5-14.5); WHITE BLOOD COUNT 15.2 10^3/ul (4.5-11.0)
[2017-11-11] MEDS: Insulin Lispro 1 UNITS/0.01 ML SC SCH (08:36)
[2017-11-11] MEDS: Insulin Lispro (HUMAlog) HIGH Coverage SC SCH (08:37)
[2017-11-11 08:43] LABS: ALB/GLOB RATIO 1.2 (1.1-1.8); ALBUMIN 3.5 g/dL (3.0-4.8); ALT/SGPT 36 U/L (7-56); AST/SGOT 30 U/L (17-59); BILIRUBIN,DIRECT 0.3 mg/dL (0.0-0.4); BLOOD UREA NITROGEN 30 mg/dL (7-21); CALCIUM 8.9 mg/dL (8.4-10.5); GFR AFRICAN-AMERICAN > 60; GFR NON-AFRICAN AMERICAN 59; MAGNESIUM 1.8 mg/dL (1.7-2.2)
--- NOTE | 2017-11-11 09:17 | CP.PCM.PN ---
Subjective - Date & Time of Evaluation Date of Evaluation: 11/11/17 Time of Evaluation: 09:10 - Subjective Subjective: Patient seen and examined at bedside. Patient states he would like to leave against medical advice. Patient has been refusing blood work and other medical tests. Patient was seen by Dr. Castillo who explained the risks and consequences of leaving including respiratory failure, , paralysis, infection, and stroke. Patient refuses to be complaint with physician orders. Patient aware of his medical condition and has been informed about his medical condition in laymen's terms. All appropriate paperwork has been filled out and witnessed by nursing staff. Objective - Vital Signs/Intake and Output Vital Signs (last 24 hours): Temp Pulse Resp BP Pulse Ox 97.9 F 81 20 167/87 H 99 11/11/17 07:44 11/11/17 07:44 11/11/17 07:44 11/11/17 07:44 11/11/17 07:44 Intake and Output: 11/11/17 11/11/17 06:59 18:59 Intake Total 1140 Output Total 400 Balance 740 - Medications Medications: Current Medications Acetylcysteine (Acetylcysteine 20%) 4 ml IH Q6H [facility] Last Admin: 11/11/17 07:16 Dose: 4 ml Atorvastatin Calcium (Lipitor) 10 mg PO DIN [facility] Last Admin: 11/10/17 17:03 Dose: 10 mg Benzonatate (Tessalon Perles) 200 mg PO TID [facility] Last Admin: 11/10/17 21:24 Dose: 200 mg Brimonidine Tartrate (Alphagan P 0.15% Opht) 1 drop OU BID [facility] Last Admin: 11/10/17 19:00 Dose: 1 drop Budesonide (Pulmicort Respules) 0.5 mg IH [id number] [facility] Last Admin: 11/11/17 07:16 Dose: 0.5 mg Diltiazem HCl (Cardizem) 30 mg PO Q6H [facility] Last Admin: 11/11/17 03:44 Dose: 30 mg Dorzolamide HCl (Trusopt) 0 ml OU BID [facility] Last Admin: 11/10/17 18:58 Dose: 1 drop Doxycycline Hyclate (Doryx) 100 mg PO Q12 [facility] PRN Reason: Protocol Last Admin: 11/10/17 21:24 Dose: 100 mg Ceftriaxone Sodium (Rocephin 1 Gram Ivpb) 1 gm in 100 mls @ 100 mls/hr IVPB DAILY [facility] PRN Reason: Protocol Last Admin: 11/10/17 09:12 Dose: 100 mls/hr Azithromycin (Zithromax 500mg In Ns) 500 mg in 250 mls @ 167 mls/hr IVPB DAILY [facility] PRN Reason: Protocol Last Admin: 11/10/17 09:12 Dose: 167 mls/hr Insulin Detemir (Levemir) 30 unit SC QAM [facility] Last Admin: 11/10/17 09:16 Dose: 30 unit Insulin Detemir (Levemir) 15 unit SC QPM [facility] Last Admin: 11/10/17 17:06 Dose: 15 unit Insulin Human Lispro (Humalog) 5 units SC ACB [facility] Last Admin: 11/11/17 08:36 Dose: 5 units Insulin Human Lispro (Humalog) 5 units SC DAILY@1145 [facility] Last Admin: 11/10/17 13:08 Dose: 5 units Insulin Human Lispro (Humalog) 5 units SC DAILY@1745 [facility] Last Admin: 11/10/17 17:03 Dose: 5 units Insulin Human Lispro (Humalog High) 0 units SC AC [facility] PRN Reason: Protocol Last Admin: 11/11/17 08:37 Dose: 12 units Latanoprost (Xalatan Opht) 0 ml OU HS [facility] Last Admin: 11/10/17 21:25 Dose: 2.5 ml Levalbuterol HCl (Xopenex) 0.63 mg IH [id number] [facility] Last Admin: 11/11/17 07:16 Dose: 0.63 mg Losartan Potassium (Cozaar) 25 mg PO DAILY [facility] Last Admin: 11/10/17 09:12 Dose: 25 mg Methylprednisolone (Solu-Medrol) 30 mg IVP Q12 [facility] Last Admin: 11/10/17 21:25 Dose: 30 mg Pantoprazole Sodium (Protonix Ec Tab) 40 mg PO DAILY [facility] Last Admin: 11/10/17 09:12 Dose: 40 mg Promethazine HCl/Codeine (Phenergan/Codeine Oral Syrup) 5 ml PO Q4H PRN PRN Reason: Cough Tamsulosin HCl (Flomax) 0.4 mg PO DAILY [facility] Last Admin: 11/10/17 09:12 Dose: 0.4 mg - Labs Labs: 11/11/17 06:30 11/11/17 06:30 PT 12.4 SECONDS (9.4-12.5) 11/09/17 18:09 INR 1.09 (0.93-1.08) H 11/09/17 18:09 APTT 29.6 Seconds (25.1-36.5) 11/09/17 18:09
--- NOTE | 2017-11-11 09:28 | CP.PCM.PN ---
Subjective - Date & Time of Evaluation Date of Evaluation: 11/11/17 Time of Evaluation: 09:18 - Subjective Subjective: Surgery: Dr. Mary Pt seen and examined. Resting comfortably in bed. No complaints of abd pain. Objective - Vital Signs/Intake and Output Vital Signs (last 24 hours): Temp Pulse Resp BP Pulse Ox 97.9 F 81 20 167/87 H 99 11/11/17 07:44 11/11/17 07:44 11/11/17 07:44 11/11/17 07:44 11/11/17 07:44 Intake and Output: 11/11/17 11/11/17 06:59 18:59 Intake Total 1140 Output Total 400 Balance 740 - Medications Medications: Current Medications Acetylcysteine (Acetylcysteine 20%) 4 ml IH Q6H [facility] Last Admin: 11/11/17 07:16 Dose: 4 ml Atorvastatin Calcium (Lipitor) 10 mg PO DIN [facility] Last Admin: 11/10/17 17:03 Dose: 10 mg Benzonatate (Tessalon Perles) 200 mg PO TID [facility] Last Admin: 11/10/17 21:24 Dose: 200 mg Brimonidine Tartrate (Alphagan P 0.15% Opht) 1 drop OU BID [facility]ESS[facility] Last Admin: 11/10/17 19:00 Dose: 1 drop Budesonide (Pulmicort Respules) 0.5 mg IH [id number] [facility] Last Admin: 11/11/17 07:16 Dose: 0.5 mg Diltiazem HCl (Cardizem) 30 mg PO Q6H [facility] Last Admin: 11/11/17 03:44 Dose: 30 mg Dorzolamide HCl (Trusopt) 0 ml OU BID [facility] Last Admin: 11/10/17 18:58 Dose: 1 drop Doxycycline Hyclate (Doryx) 100 mg PO Q12 JESSICA PRN Reason: Protocol Last Admin: 11/10/17 21:24 Dose: 100 mg Ceftriaxone Sodium (Rocephin 1 Gram Ivpb) 1 gm in 100 mls @ 100 mls/hr IVPB DAILY JESSICA PRN Reason: Protocol Last Admin: 11/10/17 09:12 Dose: 100 mls/hr Azithromycin (Zithromax 500mg In Ns) 500 mg in 250 mls @ 167 mls/hr IVPB DAILY [facility] PRN Reason: Protocol Last Admin: 11/10/17 09:12 Dose: 167 mls/hr Insulin Detemir (Levemir) 30 unit SC QAM [facility] Last Admin: 11/10/17 09:16 Dose: 30 unit Insulin Detemir (Levemir) 15 unit SC QPM [facility] Last Admin: 11/10/17 17:06 Dose: 15 unit Insulin Human Lispro (Humalog) 5 units SC ACB [facility] Last Admin: 11/11/17 08:36 Dose: 5 units Insulin Human Lispro (Humalog) 5 units SC DAILY@1145 [facility] Last Admin: 11/10/17 13:08 Dose: 5 units Insulin Human Lispro (Humalog) 5 units SC DAILY@1745 [facility] Last Admin: 11/10/17 17:03 Dose: 5 units Insulin Human Lispro (Humalog High) 0 units SC AC [facility] PRN Reason: Protocol Last Admin: 11/11/17 08:37 Dose: 12 units Latanoprost (Xalatan Opht) 0 ml OU HS [facility] Last Admin: 11/10/17 21:25 Dose: 2.5 ml Levalbuterol HCl (Xopenex) 0.63 mg IH [id number] [facility] Last Admin: 11/11/17 07:16 Dose: 0.63 mg Losartan Potassium (Cozaar) 25 mg PO DAILY [facility] Last Admin: 11/10/17 09:12 Dose: 25 mg Methylprednisolone (Solu-Medrol) 30 mg IVP Q12 [facility] Last Admin: 11/10/17 21:25 Dose: 30 mg Pantoprazole Sodium (Protonix Ec Tab) 40 mg PO DAILY [facility] Last Admin: 11/10/17 09:12 Dose: 40 mg Promethazine HCl/Codeine (Phenergan/Codeine Oral Syrup) 5 ml PO Q4H PRN PRN Reason: Cough Tamsulosin HCl (Flomax) 0.4 mg PO DAILY [facility] Last Admin: 11/10/17 09:12 Dose: 0.4 mg - Labs Labs: 11/11/17 06:30 11/11/17 06:30 PT 12.4 SECONDS (9.4-12.5) 11/09/17 18:09 INR 1.09 (0.93-1.08) H 11/09/17 18:09 APTT 29.6 Seconds (25.1-36.5) 11/09/17 18:09 - Constitutional Appears: Non-toxic, No Acute Distress - Head Exam Head Exam: ATRAUMATIC, NORMOCEPHALIC - Eye Exam Eye Exam: EOMI - ENT Exam ENT Exam: Mucous Membranes Moist - Neck Exam Neck Exam: Full ROM - Respiratory Exam Respiratory Exam: NORMAL BREATHING PATTERN. absent: Accessory Muscle Use, Respiratory Distress - GI/Abdominal Exam GI & Abdominal Exam: Soft. absent: Distended, Firm, Guarding, Rigid, Tenderness , Rebound - Neurological Exam Neurological Exam: Alert, Awake, Oriented x3 - Psychiatric Exam Psychiatric exam: Normal Affect, Normal Mood Assessment and Plan - Assessment and Plan (Free Text) Assessment: 72M w. splenic hematoma -serial H/H stable -abd exam benign -no plans for surgical intervention -surgery will sign off, please reconsult if needed -will d/w attending Sal PGY3
--- NOTE | 2017-11-11 11:58 | PN ---
DATE: 11/11/2017 PULMONARY NOTE SUBJECTIVE: The patient appears comfortable this morning. He is not short of breath at rest. OBJECTIVE VITAL SIGNS: Temperature is 98.0, pulse 85, respirations 18/20, blood pressure 138/70. Oxygen saturation on room air is 98%. HEENT: Normocephalic, atraumatic. NECK: No JVD. CARDIOVASCULAR: Positive S1, S2. No S3 gallop. LUNGS: Improved breath sounds at the bases. Still with minimal rhonchi and a few wheezes bilaterally. EXTREMITIES: No clubbing, cyanosis or edema. Calves are nontender to palpation. GASTROINTESTINAL: Abdomen is soft, nontender and nondistended. Bowel sounds are positive. SKIN: No acute rash. NEUROLOGIC: Exam limited at the present time. IMPRESSION 1. Acute bronchitis. 2. Chronic obstructive pulmonary disease. 3. Solitary pulmonary nodule - left upper lobe. 4. Coronary artery disease. 5. Diabetes mellitus. PLAN: The patient appears comfortable this morning. He is not short of breath at rest. He does state to feeling much better overall. On physical exam, mild bronchospasm persists. I will continue with the current nebulizer treatments and low-dose intravenous steroids (decreased yesterday) for now. The patient also remains on antibiotic therapy. There are no temperatures noted. Clinical status of the patient is definitely improved - compared to the initial presentation. The patient is advised to be out of bed as much as possible. I have also discussed this with the nurses. I will also discuss the above with the attending physician. Jonh Hernandez MD SHELIA
--- NOTE | 2017-11-11 17:08 | CARD ---
APPROVED REPORT EKG Measurement Heart [id number] <Conclusion> Normal sinus rhythm Right bundle branch block Abnormal ECG
--- NOTE | 2017-11-12 06:53 | DS ---
HISTORY OF PRESENT ILLNESS: The patient signed out against medical advice on 11/11/2017. The patient was seen today with the nurses. The patient had been refusing blood work, refusing testing and arguing continuously even yesterday and today, and patient does not want any further testing. The patient was extensively explained about his diagnosis regarding his emphysema exacerbation and a possible hematoma and bleeding around the spleen. All of the above was explained to the patient in layman's language, but patient persistently wants to be discharged and wants to go home and does not want any blood work or testing done. Overnight nurse's notes were reviewed. Yesterday, the patient also refused blood work but then later on, the patient agreed to it. The patient refused bed alarm. The patient refused medications also. PHYSICAL EXAMINATION: VITAL SIGNS: T-max 98.0; pulse 81, 85, 75; blood pressure 142/77, 138/70, 167/87; respirations 20, O2 sat 99%. HEENT: Head examination normocephalic, atraumatic. HEENT examination shows pinkish pale conjunctivae. Anicteric sclerae. No oropharyngeal lesion. No neck rigidity. CHEST: Kyphosis. Positive upper lung rhonchi, bilateral upper lung wheezing which has improved since admission, but not completely resolved. ABDOMEN: Soft. Positive bowel sounds. No hepatosplenomegaly palpated.. No costovertebral angle tenderness. GENITALIA: Male. RECTAL: Examination is deferred. EXTREMITY: Shows no pitting edema, no calf tenderness, no Homans' sign. NEUROLOGIC: The patient is alert, awake, oriented x3. Cranial nerves II through XII intact. Gait examination is not tested. The patient's body mass index is 25.1. Motor strength is 5/5. DIAGNOSTICS: WBC 15.2 and 15.8; hemoglobin/hematocrit 11.5/35.8 and 11.7/36.8; platelet 169. Granulocytes, 89% segs. Sodium 138, potassium 4.3, chloride 105, CO2 of 22, anion gap 16, BUN 30, creatinine 1.2, GFR greater than 60. Glucose 365, 465, 198, 202, 347. Calcium 8.9, magnesium 1.8. LFTs are normal. Alk phos 164. PSA is normal. Vitamin D is 82. Thyroid panel is within normal limit. Hepatitis A, B, C serologies negative. Urine and blood cultures negative. Blood type AB positive. IMPRESSION: 1. Acute exacerbation of chronic obstructive pulmonary disease with bronchospasm and wheezing. 2. Acute versus subacute splenic hematoma with decreasing hemoglobin and hematocrit. 3. Severe noncompliance and poor compliance. 4. Hypertension. 5. Leukocytosis with granulocytosis. 6. Elevated erythrocyte sedimentation rate. 7. Uncontrolled insulin-requiring diabetes mellitus with hyperglycemia and elevated hemoglobin A1c of 9.7. 8. Mild prerenal kidney injury. 9. Trace proteinuria, glycosuria, ketonuria. 10. Severe noncompliance. 11. Suspected acute versus subacute subcapsular splenic hematoma and hemorrhage. 12. Right bundle-branch block. PLAN: At this time, the patient is asking to leave the hospital. The patient was advised against signing AMA. The patient was explained all the risks and consequences of refusing medical treatment. The patient was explained all the risk and consequences of signing out against medical advise including respiratory failure, myocardial infarction and even was explained to the patient, which he acknowledged to understand, and the patient still wants to sign out against medical advise, which patient did. All the forms and paperwork were completed and signed by the medical records specialist. The patient today at present is currently being seen and counseled by Gastroenterology, Surgery, Pulmonary, Interventional Radiology. CURRENT MEDICATIONS: 1. Mucomyst 20% 4 mL every 6 hours. 2. Alphagan 0.15% eye drop both eyes b.i.d. 3. Cardizem 30 mg q. 6 hours. 4. Cozaar 25 mg daily. 5. Doxycycline 100 mg p.o. q. 12 hours. 6. Flomax 0.4 mg daily. 7. Humalog 5 units with breakfast, 5 units with lunch, 5 units with dinner. 8. Humalog high-dose sliding scale coverage. 9. Levemir 30 units subcu a.m., Levemir 15 units p.m. 10. Lipitor 10 mg daily. 11. Phenergan with Codeine 5 mL q. 4 p.r.n. 12. Protonix 40 mg daily. 13. Pulmicort nebulizer 0.5 mg q. 12. 14. Rocephin 1 g IV daily. 15. Solu-Medrol 30 mg IV q. 12. 16. Tessalon Perles 200 three times a day. 17. Trusopt eyedrops 2%. 18. Xalatan eyedrops 0.05% both eyes at bedtime. 19. Xopenex 0.63 mg every 6 hours. Chest PT ordered. Heart-healthy diet, out of bed, SCDs, [place] stocking, physical therapy. The patient signed out against medical advise despite me explaining all the risks consequences of signing out against medical advise and refusing treatment. Dictated and electronically signed, not read. Jose Castillo MD
== END 2017-11-11 10:02 | disposition left against medical advice (07) | DRG 191 ==
LOC: ED 10:14 → ERH 12:50 → 5RNO 15:45 → OBSVTOIN 11-10 11:59
PROVIDERS: ADMIT Internal Medicine; ATTEND Internal Medicine
DX: J44.1 Chronic obstructive pulmonary disease with (acute) exacerbation (principal); K55.1 Chronic vascular disorders of intestine; D73.5 Infarction of spleen; E11.65 Type 2 diabetes mellitus with hyperglycemia; I11.9 Hypertensive heart disease without heart failure; J44.0 Chronic obstructive pulmonary disease with (acute) lower respiratory infection; J20.9 Acute bronchitis, unspecified; E83.42 Hypomagnesemia; D64.9 Anemia, unspecified; I45.10 Unspecified right bundle-branch block; N40.0 Benign prostatic hyperplasia without lower urinary tract symptoms; I25.10 Atherosclerotic heart disease of native coronary artery without angina pectoris; E78.00 Pure hypercholesterolemia, unspecified; R91.1 Solitary pulmonary nodule; N50.3 Cyst of epididymis; E87.5 Hyperkalemia; K75.3 Granulomatous hepatitis, not elsewhere classified; N43.3 Hydrocele, unspecified; K21.9 Gastro-esophageal reflux disease without esophagitis; R26.9 Unspecified abnormalities of gait and mobility; Z79.4 Long term (current) use of insulin; I25.2 Old myocardial infarction; Z95.5 Presence of coronary angioplasty implant and graft; Z91.19 Patient's noncompliance with other medical treatment and regimen; Z87.891 Personal history of nicotine dependence